=== PATIENT | female | born 1985 | race Caucasian/White ===

== ENCOUNTER 2021-05-19 14:44 | Inpatient (IN) | payer MEDICAID, SELFPAY ==
[2021-05-19] VITALS (96 sets, daily range): BP systolic 111–133; BP diastolic 80–106; PULSE 95–143; RESP 9–25; TEMP 36.6–36.7; O2SAT 95–100
[2021-05-19] MEDS: Ondansetron 4 MG/2 ML VIAL IVP (14:50)
--- NOTE | 2021-05-19 15:00 | RT.EKG_ITS ---
APPROVED REPORT Exam: Resting ECG Reason for Exam: tachycardia Patient Location: E HR:138 bpm ECG Measurements Heart Rate 138 AXIS ND 107 P 64 QRSd 81 QRS 28 QT 316 T 254 QTc 479 Conclusion Sinus tachycardia. Repol abnrm suggests ischemia, diffuse leads...ST-T neg, ant/lat/inf
--- NOTE | 2021-05-19 15:15 | DI.CT_ITS ---
Exam(s) CT THORAX ABD/PEL CTA EXAM: CT THORAX ABD/PEL CTA CLINICAL HISTORY: abdominal pain, back pain, can't walk. TECHNIQUE: Imaging Protocol: Axial computed tomography images with coronal and sagittal reformatted images were created and reviewed CONTRAST MATERIAL: Intravenous: Omnipaque 350 Contrast volume:100 in ml Oral: No COMPARISON: No exams were available for comparison FINDINGS: CHEST: Heart and great vessels: There is no evidence pulmonary emboli or aortic dissection. There are no pleural or pericardial effusions. Adenopathy: None. Lungs: No pulmonary nodules, mass or infiltrate. Bones: There is no evidence of spine or rib fracture. Mild scoliosis. ABDOMEN/PELVIS: Liver: Extreme fatty infiltration of the liver.. No measurable mass. Gallbladder: Cholelithiasis., no wall thickening, no abnormal distention.No pericholecystic fluid. Biliary tract: No radiodense calculus, no dilation. Pancreas: Normal density, no abnormal calcifications or inflammatory process. Spleen: Normal. Kidneys: Normal size, contour and axis. No radiodense stones. No hydronephrosis. No masses seen. No perinephric collection. Circumaortic left renal vein. Adrenal glands: No masses seen. Abdominal Aorta and branch vessels: Patent. Non-dilated. No atherosclerotic changes. No evidence of d issection. Bowel: No obstruction. Appendix normal. Mucosal enhancement ascending colon. Some fluid in ascending colon. Question ascending colitis. Remainder of the colon is unremarkable. Mild thickening of termina l ileum. Bladder: No gross wall thickening, focal mass or stones. Peritoneal cavity: Small amount of pelvic free fluid, presumed physiologic. No focal collection or m esenteric inflammatory response. No free air. Bones: No suspicious lesions or fractures. Mild scoliosis. Reproductive organs: Status post hysterectomy. Lymph nodes: No pathologically enlarged lymph nodes. Impression: No evidence of aortic dissection, pulmonary embolism or vascular occlusion. No significant abnormalit y in the chest. Severe fatty infiltration of the liver. Cholelithiasis without evidence of acute cholecystitis. Mild wall thickening and mucosal enhancement of the ascending colon and terminal ileum could indicate enterocolitis. RADIATION DOSE DELIVERED: Total DLP DATA REPOSITORY: All CT scans at this facility are submitted to the National Radiology Data Registry (NRDR) Dose Index Registry (DIR) with the [employer] (ACR). RADIATION OPTIMIZATION: All CT scans at this facility use at least one of these dose optimization te chniques: automated exposure control; mA and/or kV adjustment per patient size (includes targeted exa ms where dose is matched to clinical indication); or iterative reconstruction.
[2021-05-19 15:27] LABS: Abs Immature Grans 0.04 10^3/uL (0.0-0.06); Absolute Basophil Count 0.04 10^3/uL (0.0-0.2); Absolute Eosinophil Count 0.02 10^3/uL (0.0-0.7); Absolute Lymphocyte Count 1.57 10^3/uL (1.2-3.4); Absolute Monocyte Count 0.64 10^3/uL (0.1-0.8); Basophils % 0.5; Eosinophils % 0.2; HCT 39.5 % (36.0-46.0); HGB 13.6 g/dL (11.2-15.7); Immature Grans % 0.5; Lymphocytes % 18.4; MCH 32.9 pg (27.0-33.0); MCHC 34.4 % (32.0-36.0); MCV 95.6 fL (80-95); MPV 10.1 fL (8.0-11.0); Monocytes % 7.5; Neutrophils % 72.9; Nucleated RBC 0 %; Platelet Count 309 10^3/uL (130-400); RBC 4.13 10^6/uL (3.93-5.22); RDW 14.2 % (11.7-14.6); RDW-SD 49.9 fL; WBC 8.51 10^3/uL (4.4-10.8)
--- NOTE | 2021-05-19 15:29 | ED.GENADUL_ITS ---
Discharge Plan Disposition Patient Disposition: [facility] INPATIENT Condition: Stable Discharge Details Clinical Impression: Hypomagnesemia, Weakness, Diarrhea, Acute dehydration Admit Date/Time: 05/19/21 19:19 Admit Provider: Jorge Owens Attending Provider: Jorge Owens Primary Care Provider: Nicolas Hartmann ED Provider: Heaven Nielson Discharge Data Discharge Date/Time-TO BE ENTERED AT DEPARTURE: 05/19/21 19:57 Medical Decision Making <Mike Kahn NP - Last Filed: 05/24/21 16:51> Patient presenting to the emergency department with multiple complaints. She states this last week she had extremely low potassium and was sent home on oral potassium but has had chronic gallbladder issues which they have been unable to remove the gallbladder and today she is having worsening abdominal pain nausea v omiting. This is caused her not to be able to take her normal prescribed medications including one that keeps her heart rate down which is being happening for months. Patient also reports that she has had back pain for months which is worsening and since Thursday she has had significant numbness and tingling and loss of weightbearing activities to the lower extremities. Physical exam shows acutely ill patient with exquisite tenderness to right upper quadrant and epigastrium. Patient also is tachycardic in the 140s but states that she was not able to take her metoprolol this morning. Patient does have midline spinal tenderness. Plan to check labs, CTA of chest abdomen pelvis, and give metoprolol pending results. Pending results patient signed out to KATIE Collado for review of results including advanced imaging along with disposition. <KATIE Bradford - Last Filed: 05/19/21 21:20> Care was accepted from Alvarez Kahn, nurse practitioner pending diagnostic blood work, sodium was notably 130, gap of 13.9 consistent with likely dehydration, calcium adjusted with albumin 8.6 AST of 38, magnesium of 1.1 consistent with diarrhea and electrolyte depletion This may be contributing to patient's symptoms She has markedly weak on assessment She has diffuse paresthesias to bilateral lower extremities and upper extremities CT scan that was ordered prior to my assessment does not show evidence of significant acute abnormality, I did the results with the view to virtual radiology radiologist and he does notice an area of uptake in the cecum, he was questioning whether or not the patient may have area of hemorrhage in this area. As patient has a stable CBC and blood pressure, I suspect that this is not the case Patient denies any blood in stool Patient is alert, oriented, of decisional capacity, her reflexes to patella are difficult to elicit, she does have 1+ to her Achilles, her strength is 2 out of 5 bilaterally to her lower extremities and her upper extremities symmetrically She is unable to ambulate secondary to weakness She has challenges with digital rectal exam and no saddle anesthesia Acute Guillain-Jenkins?, however patient symptoms have been progressive over the past 5 months making this diagnosis very unlikely Aspect considered epidural abscess and cauda equina syndrome, however her exam findings are not consistent with these diagnoses Secondary to hypomagnesemia and dehydration, this may be exacerbating her persistent symptoms She is agreeable to admission at this time She would likely need further imaging of her brain and spine at the discretion of the admitting provider Her magnesium was repleted with 2 g She received IV fluid resuscitation She has remained alert, oriented, of decisional capacity throughout the entirety of this assessment Seizure precautions, telemetry monitoring, no QTC prolongation on EKG, sinus tachycardia, likely patient's baseline for which she takes metoprolol and has not been able to consume for the past [address] Owens is agreeable to admission Covid swab negative Medical Records Medical records reviewed: Yes I reviewed the patient's medical records. HPI <Mike Kahn NP - Last Filed: 05/24/21 16:51> General Mode of arrival: wheelchair . Date/Time Provider Initiated Documentation: 05/19/21 14:45 . Limitations to Documentation: no limitations . Information obtained by: patient . History of Present Illness 35 year old F presents to the emergency department with the chief complaint of abd pain, vomitting, back pain, inability to walk, described as moderate, with intensity rated at 8. Quality is described as sharp, and is localized to the back and abdomen. Patient started experiencing this month(s) and it has been constant. No relieving factors improve symptom(s), No exacerbating factors reported . Patient did receive the following treatments prior to arrival, none Related Data Home Medications Medication Instructions Recorded Confirmed albuterol sulfate [ProAir HFA] 2 puff INHALATION PRN PRN 05/19/21 05/19/21 metoprolol succinate 25 mg PO DAILY AM 05/19/21 05/19/21 omeprazole 40 mg PO DAILY AM 05/19/21 05/19/21 ondansetron 4 mg PO PRN PRN 05/19/21 05/19/21 potassium chloride 20 meq PO BID 05/19/21 05/19/21 prochlorperazine WI 05/19/21 05/19/21 Allergies Allergy/AdvReac Type Severity Reaction Status Date / Time erythromycin base Allergy Unknown Unverified 05/19/21 15:07 azithromycin AdvReac Intermediate dizziness, Unverified 05/19/21 15:07 vomiting citalopram AdvReac Intermediate extreme Unverified 05/19/21 15:07 drowsiness General Stated Complaint: Nk/Back Pain JAXSON: 2 <KATIE Bradford - Last Filed: 05/19/21 21:20> General Mode of arrival: wheelchair . Limitations to Documentation: no limitations . Information obtained by: patient . Review of Systems <Mike Kahn NP - Last Filed: 05/24/21 16:51> Constitutional Constitutional: Denies chills, Reports fatigue, Denies fever(s), Reports malaise and Reports weakness ENT Ears, Nose, Mouth, and Throat: Reports disequilibrium Cardiovascular Cardiovascular: Reports chest pain, Reports rapid heart rate and Denies dyspnea Respiratory Respiratory: Denies cough and Denies dyspnea Gastrointestinal Gastrointestinal: Reports abdominal pain, Reports nausea, Reports vomiting and Denies hematemesis Genitourinary Genitourinary: Denies dysuria Musculoskeletal Musculoskeletal: Reports abnormal gait, Reports back pain, Reports muscle weakn ess, Reports radiating pain into limb and Reports tingling Integumentary/Breasts Skin/Breast: Denies rash Neurologic Neurologic: Reports abnormal gait, Reports tingling, Reports paresthesias, Reports disequilibrium and Reports weakness Endocrine Endocrine: Reports fatigue PFSH <Mike Kahn NP - Last Filed: 05/24/21 16:51> All Active Problems (Updated 05/23/21 @ 16:45 by Lilian Pierre NP) Peripheral neuropathy (Acute) Enteritis (Acute) Hepatitis C test positive (Acute) Paresthesia (Acute) Discharge planning issues (Acute) DVT prophylaxis (Acute) Dental abscess (Acute) Facial swelling (Acute) Fibromyalgia (Acute) Back pain (Acute) Ambulatory dysfunction (Acute) Nausea & vomiting (Acute) Gallstones without obstruction of gallbladder (Acute) Hypomagnesemia (Acute) Weakness (Acute) Weakness (Acute) Social History (Updated 05/21/21 @ 16:41 by Myrna Pierre MD) Smoking/Tobacco Use Status: Current every day Tobacco Type: cigarettes Smoking risk assessment performed?: Yes Alcohol Intake: current Alcohol Intake frequency: 3 or more drinks per day Drug use: Current Sobriety Substance use type: former substance user Number of Children: 4 current occupation: Unemployed Do you feel safe at home: Yes Additional Social history: Kids age 12 and 10 live with her ex-. Has twins age 9. Was unable to care for them. Her aunt adopted them at . 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 Exam <Mike Kahn NP - Last Filed: 05/24/21 16:51> Const General: cooperative and ill appearing acutely Nutritional Appearance: thin Orientation: alert, awake and oriented x3 HENMT Mouth: oral mucosa abnormal (dry) erythematous and tongue abnormal (Dry and erythematous) other Resp Effort & Inspection: normal respiratory effort, able to speak in complete sentences and no respiratory distress Auscultation: clear to auscultation bilaterally Cardio Rate: tachycardic Rhythm: regular rhythm Heart Sounds: S1 normal and S2 normal GI Inspection: distended Palpation: guarding in the RUQ, not rigid and tender in the epigastrum and in the RUQ Auscultation: hypoactive bowel sounds Back/Spine/Pelvis Thoracic/Lumbar Spine: No paraspinal tenderness, No thoracic spinal tenderness and lumbar spinal tenderness Skin General skin exam: no rashes or lesions noted Neuro General: patient alert, patient awake, patient oriented x3 and moves all extremities Cognition: normal cognition Motor: strength abnormal (Diffuse nonfocal weakness) Sensory Exam: other (mild sensation perception diffusely throughout all) Course <Mike Kahn NP - Last Filed: 05/24/21 16:51> Vital Signs Vital signs: Vital Signs Temperature 36.7 C 05/19/21 15:01 Pulse 135 H 05/19/21 15:01 Respiratory Rate 12 05/19/21 15:01 Blood Pressure 125/99 H 05/19/21 15:01 Pulse Oximetry 99 05/19/21 15:01 Temperature 36.7 C 05/19/21 15:01 Temperature Source Temporal Artery Scan 05/19/21 15:01 Pulse 135 H 05/19/21 15:01 Respiratory Rate 12 05/19/21 15:01 Blood Pressure 125/99 H 05/19/21 15:01 Blood Pressure Position Supine 05/19/21 15:01 Pulse Oximetry 99 05/19/21 15:01 Oxygen Delivery Method Room Air 05/19/21 15:01 Oxygen Flow Rate 0 05/19/21 15:01 Lab/Test Results Lab/Test Results: Laboratory Tests Range/Units 05/19/21 15:24 WBC (4.4-10.8) 10^3/uL 8.51 RBC (3.93-5.22) 10^6/uL 4.13 Hgb (11.2-15.7) g/dL 13.6 Hct (36.0-46.0) % 39.5 MCV (80-95) fL 95.6 H MCH (27.0-33.0) pg 32.9 MCHC (32.0-36.0) % 34.4 RDW (11.7-14.6) % 14.2 Plt Count (130-400) 10^3/uL 309 MPV (8.0-11.0) fL 10.1 Immature Gran % 0.5 Neutrophils % 72.9 Lymphocytes % 18.4 Monocytes % 7.5 Eosinophils % 0.2 Basophils % 0.5 Nucleated RBC % % 0 Absolute Neutrophils (1.2-6.7) 10^3/uL 6.20 Absolute Lymphocytes (1.2-3.4) 10^3/uL 1.57 Absolute Monocytes (0.1-0.8) 10^3/uL 0.64 Absolute Eosinophils (0.0-0.7) 10^3/uL 0.02 Absolute Basophils (0.0-0.2) 10^3/uL 0.04 <KATIE Bradford - Last Filed: 05/19/21 21:20> Critical Care Time Critical Care Time: Yes Total Critical Care Time: 35 Attestation: IV magnesium, ED EKG, telemetry monitoring, admission Sign Out <Mike Kahn NP - Last Filed: 05/24/21 16:51> Sign Out Data: Sign Out Comment: Patient signed out to Heaven WILSON pending lab and CT imaging. Last updated by Mike Kahn NP at 05/19/21 16:21
[2021-05-19] MEDS: Metoprolol 5 MG/5 ML VIAL 2.5 MG IVP (15:35)
[2021-05-19] MEDS: Normal Saline 1,000 ML 1000 ML IV (15:35)
[2021-05-19] MEDS: HYDROmorphone 2 MG/ML VIAL 0.5 MG IVP (15:39)
[2021-05-19 15:54] LABS: ALT 38 U/L (14-59); AST 38 U/L (15-37); Albumin 2.9 g/dL (3.4-5.0); Alkaline Phosphatase 56 U/L (46-116); Anion Gap 13.9 mmol/L (3-11); BUN 7 mg/dL (7-18); Bilirubin, Total 0.8 mg/dL (0.2-1.0); CO2 23.1 mmol/L (21.0-32.0); CREATININE 0.5 mg/dL (0.55-1.02); Calcium 7.4 mg/dL (8.5-10.1); Chloride 93 mmol/L (98-107); Glucose 103 mg/dL (74-106); Lipase 85 U/L (73-393); Magnesium 1.1 mg/dL (1.8-2.4); Sodium 130 mmol/L (136-145); TSH (W/Ref FT4) 1.09 uIU/mL (0.36-3.74); Total Protein 6.3 g/dL (6.4-8.2); Troponin I < 50 ng/L (<or=60)
[2021-05-19 16:03] LABS: Source Nasal/Nares
--- NOTE | 2021-05-19 16:18 | DI.CT_ITS ---
Exam(s) CT THORACIC LUMBAR SPINE REC EXAM: CT THORACIC LUMBAR SPINE REC CLINICAL HISTORY: weakness and pain. TECHNIQUE: Imaging Protocol: Axial computed tomography images with coronal and sagittal reformatted images were created and reviewed. The images were reconstructed from the chest abdomen pelvic CT. CONTRAST MATERIAL: Intravenous: Omnipaque 350 Contrast volume:100 ml Contrast route:IV - Oral: yes / COMPARISON: CT CT THORAX ABD/PEL CTA from 05/19/2021 FINDINGS: Bones: No fractures or dislocations are seen. No lytic or blastic lesions. No degenerative changes. Mild thoracolumbar scoliosis. Soft tissues: Paraspinal soft tissues are unremarkable. No large disk herniations are identified. IMPRESSION: Mild scoliosis, otherwise negative. RADIATION DOSE DELIVERED: 709.92mGy.cm Total DLP 709.92mGy.cm Total DLP DATA REPOSITORY: All CT scans at this facility are submitted to the National Radiology Data Registry (NRDR) Dose Index Registry (DIR) with the [employer] (ACR). RADIATION OPTIMIZATION: All CT scans at this facility use at least one of these dose optimization te chniques: automated exposure control; mA and/or kV adjustment per patient size (includes targeted exa ms where dose is matched to clinical indication); or iterative reconstruction.
[2021-05-19 16:30] LABS: C-Reactive Protein 0.07 mg/dL (0.0-0.3)
[2021-05-19] MEDS: MAGNESIUM SULFATE 2 GM/50 ML BAG IVPB (16:30)
[2021-05-19] MEDS: Omnipaque 350 MG/ML 100 ML BTL IJ (16:32)
[2021-05-19] MEDS: Normal Saline Flush 10 ML SYR IVP ×2 (16:33→20:55)
[2021-05-19 16:40] LABS: PHOSPHORUS 3.4 mg/dL (2.6-4.7)
--- NOTE | 2021-05-19 17:23 | DI.VRAD_ITS ---
PROCEDURE INFORMATION: Exam: CTA Chest With Contrast Exam date and time: 05/19/2021 3:23 PM Age: 35 years old Clinical indication: Other: Abdominal pain, back pain, can't walk; Additional info: PT is currently on bedrest waiting to have gallbladder surgery. TECHNIQUE: Imaging protocol: Computed tomographic angiography of the chest with contrast. 3D rendering (Not supervised by radiologist): MIP and/or 3D reconstructed images were created by the technologist. Radiation optimization: All CT scans at this facility use at least one of these dose optimization techniques: automated exposure control; mA and/or kV adjustment per patient size (includes targeted exams where dose is matched to clinical indication); or iterative reconstruction. Contrast material: OMNIPAQUE 350; Contrast volume: 100 ml; Contrast route: INTRAVENOUS (IV); COMPARISON: No relevant prior studies available. FINDINGS: Pulmonary arteries: Normal. No pulmonary emboli. Aorta: There is no aortic aneurysm or dissection identified. Lungs: Unremarkable. No consolidation. No masses. Pleural spaces: There are no pleural effusions present. There is no evidence of pneumothorax. Heart: Unremarkable. No cardiomegaly. No pericardial effusion. Lymph nodes: There is no evidence of lymphadenopathy. Bones/joints: There is mild S-shaped thoracic scoliosis. No acute fractures are identified. Soft tissues: Unremarkable. IMPRESSION: 1. No aortic aneurysm or dissection identified. 2. No active cardiopulmonary disease identified. PROCEDURE INFORMATION: Exam: CTA Abdomen and Pelvis With Contrast Exam date and time: 05/19/2021 3:23 PM Age: 35 years old Clinical indication: Other: Abdominal pain, back pain, can't walk; Additional info: PT is currently on bedrest waiting to have gallbladder surgery. TECHNIQUE: Imaging protocol: Computed tomographic angiography of the abdomen and pelvis with contrast material. 3D rendering (Not supervised by radiologist): MIP and/or 3D reconstructed images were created by the technologist. Radiation optimization: All CT scans at this facility use at least one of these dose optimization techniques: automated exposure control; mA and/or kV adjustment per patient size (includes targeted exams where dose is matched to clinical indication); or iterative reconstruction. Contrast material: OMNIPAQUE 350; Contrast volume: 100 ml; Contrast route: INTRAVENOUS (IV); COMPARISON: No relevant prior studies available. FINDINGS: Aorta: No abdominal aortic aneurysm or dissection is identified. Celiac trunk and mesenteric arteries: No occlusion or significant stenosis. Renal arteries: No occlusion or significant stenosis. Right iliac arteries: No occlusion or significant stenosis. Left iliac arteries: No occlusion or significant stenosis. Liver: The liver parenchyma demonstrates diffusely decreased attenuation, suggesting fatty infiltration. Gallbladder and bile ducts: Findings suggest a few tiny layering gallstones measuring up to 2-3 mm. The gallbladder wall is not clearly thickened. There is no pericholecystic stranding. There is no biliary ductal dilatation.There has been a hysterectomy. Pancreas: Unremarkable. No mass. No ductal dilation. Spleen: Unremarkable. No splenomegaly. Adrenal glands: Unremarkable. No mass. Kidneys and ureters: Unremarkable. No solid mass. No hydronephrosis. Stomach and bowel: The distal ileum is collapsed and is not well evaluated, but findings suggest mild edematous wall thickening and mucosal hyperenhancement of multiple segments of distal ileum suggesting mild ileitis. There is also mild edematous wall thickening and mucosal hyperenhancement of the ascending colon and hepatic flexure of the colon, suggesting mild colitis in this region. There is mild air distension of the more distal colon from the transverse colon through the sigmoid colon with colon measuring up to 5.1 cm. There is a small amount dependent hyperdense material within the cecum and proximal ascending colon extending into the base of the appendix, which could represent ingested material, but intraluminal bleeding cannot be excluded on this exam. Appendix: No evidence for acute appendicitis. Intraperitoneal space: There is a small amount of ascites in the pelvis. Lymph nodes: Unremarkable. No enlarged lymph nodes. Urinary bladder: Unremarkable. No mass. Reproductive: Unremarkable as visualized. Bones/joints: There is mild S-shaped thoracolumbar scoliosis. No acute fractures are identified. There are no clear degenerative changes of the thoracic and lumbar spine. Soft tissues: Unremarkable. IMPRESSION: 1. No evidence for abdominal aortic dissection or aneurysm. 2. Findings of mild colitis involving the ascending colon as well as regions of mild distal enteritis. 3. There is dependent hyperdense material within the cecum and proximal ascending colon which could represent ingested material, but intraluminal bleeding cannot be excluded on this exam. Recommend clinical correlation. Follow-up exam could be obtained as clinically indicated. 4. Mild distention of the colon, suggesting ileus. No clear evidence for bowel obstruction. 5. Tiny gallstones. No CT evidence of acute cholecystitis. 6. Hepatic steatosis. Findings were discussed with KATIE Nielson at 05/19/2021 5:18 PM EST. Dictated and Authenticated by: Chilo Ruiz MD. Ordering:FIDENCIO Mckeon MD
[2021-05-19 18:04] LABS: COVID-19 PCR Negative (Negative)
[2021-05-19 18:17] LABS: Bilirubin Small (Negative); Blood Negative (Negative); Clarity Clear (Clear); Glucose Negative (Negative); Ketones >=160 mg/dL (Negative); Leukocyte Esterase Negative (Negative); Nitrite Negative (Negative); Specific Gravity 1.015 (1.005-1.025); Urobilinogen 0.2 EU/dL (Up TO 0.2); pH 6.5 (5-8)
--- NOTE | 2021-05-19 18:58 | W.PM.HP.N ---
Date of service: 05/19/21 Time of Service: 18:58 Assessment and Plan Assessment and plan (1) Weakness: Status: Acute Assessment and plan: Multifactorial. At this point I would describe the situation as an apparent chronic neuropathy with a acute subacute diarrheal illness. The theoretical intersection of sensory neuropathy with gastoenteropathy raises question of systemic illness, including inflammatory, metabolic or toxic entities, or possible nutritional deficiency. For now I would approach this case on separate tracks: 1. Acute weakness, dehydration and electrolyte disturbances: IVF, replensish electrolytes 2. gastroenteropthy: stools studies, will need upper and lower endoscopy, check Vitamin A, D and INR, and fecal calprotectin 3. Neuropathy: neuro consult 4. Sinus tachycardia: resume beta shy History of Present Illness History of Present Illness Chief Complaint: weakness Narrative: 35 female with h/o chronic unspecified neuropathy, cholelithiasis, unspecified tachycardia and recurrent diarrhea. usual care at [facility], says she is here because she hasn't gotten answers. Statesd she has had ascending snesory changes in stocking/glove fashion since last summer, has not seen neuro; states she has had intermittent bouts of abd pain, nausea and vomiting and diarrhea, and was told she should have her gall bladder removed (unclear why this has not happened) and comes in tonight reporting 2 weeks of unremitting watery diarrhea and progeressive weakness to the point where she was unable to ambulate. W/U in ER of note for white count 8.5; Na 130, K 4.0, Mg 1.1; BUN 7/Creat 0.5; Albumin 2.9, TSH 1.0; CT abdomen few tiny gall stones, no signs cholycystitis, mild ileitis and proximal colitis. Patient has received IVF, Zofran, Dilaudid and MgSO4. I was asked to evaluate for admission. Review of Systems All systems reviewed & are unremarkable except as noted in HPI and below PFSH All Active Problems (Updated 05/19/21 @ 19:12 by Jorge Owens MD) Weakness (Acute) Social History Smoking/Tobacco Use Status: Current every day Tobacco Type: cigarettes Smoking risk assessment performed?: Yes Alcohol Intake: current Alcohol Intake frequency: 3 or more drinks per day Drug use: Never Substance use type: former substance user Do you feel safe at home: Yes Meds Allergies and Home Medications Allergies Allergy/AdvReac Type Severity Reaction Status Date / Time erythromycin base Allergy Unknown Unverified 05/19/21 15:07 azithromycin AdvReac Intermediate dizziness, Unverified 05/19/21 15:07 vomiting citalopram AdvReac Intermediate extreme Unverified 05/19/21 15:07 drowsiness Home Medications Medication Instructions Recorded Confirmed Type albuterol sulfate [ProAir HFA] 2 puff INHALATION PRN PRN 05/19/21 05/19/21 History metoprolol succinate 25 mg PO DAILY AM 05/19/21 05/19/21 History omeprazole 40 mg PO DAILY AM 05/19/21 05/19/21 History ondansetron 4 mg PO PRN PRN 05/19/21 05/19/21 History potassium chloride 20 meq PO BID 05/19/21 05/19/21 History prochlorperazine [place] 05/19/21 05/19/21 History Exam Narrative Exam Narrative: 120/90. 113, 36.1, 17, 99% RA. HEENT atraumatic; neck supple; lungs clear; heart tachy/regular; abdomen hypoactive BS, soft, mild RUG tenderness w/o rebound; extremities w/o edema; neuro Ox3, CN intact, motor 5t/5 propx/distal; sensory decreased light touch reported throughout entire body; DTR trace to absent throughout Results Labs Result diagrams: 05/19/21 15:24 05/19/21 15:24 Labs: Laboratory Results - last 24 hr 05/19/21 05/19/21 05/19/21 15:24 15:24 15:24 WBC 8.51 RBC 4.13 Hgb 13.6 Hct 39.5 MCV 95.6 H MCH 32.9 MCHC 34.4 RDW 14.2 Plt Count 309 MPV 10.1 Immature Gran % 0.5 Neutrophils % 72.9 Lymphocytes % 18.4 Monocytes % 7.5 Eosinophils % 0.2 Basophils % 0.5 Nucleated RBC % 0 Absolute Neutrophils 6.20 Absolute Lymphocytes 1.57 Absolute Monocytes 0.64 Absolute Eosinophils 0.02 Absolute Basophils 0.04 Sodium 130 L Potassium 4.0 Chloride 93 L Carbon Dioxide 23.1 Anion Gap 13.9 H BUN 7 Creatinine 0.5 L Estimated GFR/1.73 m2 >= 60.00 Glucose 103 Calcium 7.4 L Phosphorus Magnesium 1.1 L Total Bilirubin 0.8 AST 38 H ALT 38 Alkaline Phosphatase 56 Troponin I < 50 C-Reactive Protein 0.07 Total Protein 6.3 L Albumin 2.9 L Lipase 85 TSH 1.09 Urine Color Urine Clarity Urine pH Ur Specific [place] Urine Protein Urine Ketones Urine Blood Urine Nitrite Urine Bilirubin Urine Urobilinogen Ur Leukocyte Esterase Urine Glucose COVID-19 Source SARS-CoV-2 (PCR) 05/19/21 05/19/21 05/19/21 15:24 15:55 18:00 WBC RBC Hgb Hct MCV MCH MCHC RDW Plt Count MPV Immature Gran % Neutrophils % Lymphocytes % Monocytes % Eosinophils % Basophils % Nucleated RBC % Absolute Neutrophils Absolute Lymphocytes Absolute Monocytes Absolute Eosinophils Absolute Basophils Sodium Potassium Chloride Carbon Dioxide Anion Gap BUN Creatinine Estimated GFR/1.73 m2 Glucose Calcium Phosphorus 3.4 Magnesium Total Bilirubin AST ALT Alkaline Phosphatase Troponin I C-Reactive Protein Total Protein Albumin Lipase TSH Urine Color Yellow Urine Clarity Clear Urine pH 6.5 Ur Specific [place] 1.015 Urine Protein Negative Urine Ketones >=160 H Urine Blood Negative Urine Nitrite Negative Urine Bilirubin Small H Urine Urobilinogen 0.2 Ur Leukocyte Esterase Negative Urine Glucose Negative COVID-19 Source Nasal/Nares SARS-CoV-2 (PCR) Negative Last Vital Signs Temp 36.7 C 05/19/21 15:01 Pulse 113 H 05/19/21 17:45 Resp 17 05/19/21 17:47 BP 120/90 05/19/21 17:45 Pulse Ox 99 05/19/21 17:47 PAWSS Have you Been Recently Intoxicated or Drunk Within the Last 30 days?: Yes Have you Ever Experienced Previous Episodes of Alcohol Withdrawal?: No Have you ever Experienced Withdrawal Seizures?: No Have you ever Experienced Delirium Tremens(DT)s?: No Have you ever undergone Alcohol Rehabilitation Treatment (i.e, inpt ot outpatient treatment programs)?: No Have you ever Experienced Blackouts?: No Have you ever Combined Alcohol with other Downers within the last 90 days?: No Have you ever Combined Alcohol with any other Substance of Abuse during the last 90 days?: No Positive Blood Alcohol level on Presentation? [PCS.BAL]: No Result: 1
[2021-05-19] MEDS: Lactated Ringers 1,000 ML 125 ML IV (20:54)
[2021-05-19] MEDS: ACETAMINOPHEN 1,000 MG/100 ML BTL 400 MG IVPB (21:08)
[2021-05-19] MEDS: Metoprolol 25 MG TAB PO (21:08)
[2021-05-20] VITALS (10 sets, daily range): BP systolic 113–130; BP diastolic 81–94; PULSE 70–109; RESP 17–18; TEMP 36.3–36.8; O2SAT 94–99
[2021-05-20] MEDS: Metoprolol CR 25 MG TABCR PO (05:36)
[2021-05-20] MEDS: ACETAMINOPHEN 1,000 MG/100 ML BTL 400 MG IVPB ×2 (05:56→12:13)
[2021-05-20] MEDS: Lactated Ringers 1,000 ML 125 ML IV ×2 (06:53→16:16)
[2021-05-20 07:27] LABS: INR 1.1 (0.9-1.1); Prothrombin Time 11.1 sec (9.3-11.0)
[2021-05-20] MEDS: Omeprazole 20 MG CAPCR 40 MG PO (07:44)
[2021-05-20 08:04] LABS: HCT 34.2 % (36.0-46.0); HGB 11.7 g/dL (11.2-15.7); MCH 33.1 pg (27.0-33.0); MCHC 34.2 % (32.0-36.0); MCV 96.9 fL (80-95); MPV 10.5 fL (8.0-11.0); Platelet Count 256 10^3/uL (130-400); RBC 3.53 10^6/uL (3.93-5.22); RDW 14.3 % (11.7-14.6); RDW-SD 50.9 fL; WBC 6.61 10^3/uL (4.4-10.8)
[2021-05-20 08:44] LABS: BUN 3 mg/dL (7-18); CREATININE 0.5 mg/dL (0.55-1.02); Calcium 6.8 mg/dL (8.5-10.1); Chloride 96 mmol/L (98-107); Glucose 81 mg/dL (74-106); Magnesium 1.9 mg/dL (1.8-2.4); Sodium 131 mmol/L (136-145); Vitamin B12 467 pg/mL (193-986)
[2021-05-20 08:46] LABS: Potassium 2.9 mmol/L (3.5-5.1)
--- NOTE | 2021-05-20 08:52 | W.SURGCON ---
Documented by User: Wilma Guan DO Ingr[place] 05/21/21 23:45 Date of service: 05/20/21 Time of Service: 08:52 Assessment and Plan Assessment and plan (1) Gallstones without obstruction of gallbladder: Status: Acute Assessment and plan: appear to be chroinic. No signs of acute infection or obstruction -once electrolytes resolved, can consider surgery. -could be done as outpt. -I did review the neurology consultation. -I did discuss the case with Dr. Rowe. Patient does not have any severe abdominal pain, nausea vomiting, or diarrhea at this time. Her other problems, specifically the weakness and the electrolyte abnormalities are not related to gallbladder disease. I will recommend she have her gallbladder out at a later time. She does not appear to require any endoscopy at this. She can follow-up with our clinic or with [facility] surgical group. (2) Weakness: Status: Acute (3) Diarrhea: Status: Acute (4) Acute dehydration: Status: Acute History of Present Illness Narrative: Pt presented to ED w/ weakness and abdominal pain. She is a pt from [facility] and we dont' have any prior information on her. CT: shows small stones and sludge. There are no signs of acute cholecystitis. She has significant electrolyte abnormalities PFSH All Active Problems (Updated 05/21/21 @ 16:55 by Vivi Guzmán NP) Enteritis (Acute) Hepatitis C test positive (Acute) Paresthesia (Acute) Discharge planning issues (Acute) DVT prophylaxis (Acute) Dental abscess (Acute) Facial swelling (Acute) Fibromyalgia (Acute) Back pain (Acute) Ambulatory dysfunction (Acute) Nausea & vomiting (Acute) Gallstones without obstruction of gallbladder (Acute) Hypomagnesemia (Acute) Weakness (Acute) Diarrhea (Acute) Acute dehydration (Acute) Weakness (Acute) Social History (Updated 05/21/21 @ 16:41 by Myrna Pierre MD) Smoking/Tobacco Use Status: Current every day Tobacco Type: cigarettes Smoking risk assessment performed?: Yes Alcohol Intake: current Alcohol Intake frequency: 3 or more drinks per day Drug use: Current Sobriety Substance use type: former substance user Number of Children: 4 current occupation: Unemployed Do you feel safe at home: Yes Additional Social history: Kids age 12 and 10 live with her ex-. Has twins age 9. Was unable to care for them. Her aunt adopted them at . 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 Exam Resp Effort & Inspection: normal respiratory effort and able to speak in complete sentences Auscultation: clear to auscultation bilaterally Cardio Rate: regular rate Rhythm: regular rhythm GI Palpation: soft Auscultation: normal bowel sounds Other: mild RUQ pain Results Last Vital Signs Temp 36.3 C L 05/20/21 07:23 Pulse 91 H 05/20/21 07:23 Resp 17 05/20/21 07:23 BP 125/90 05/20/21 07:23 Pulse Ox 99 05/20/21 07:23 Labs Result diagrams: 05/21/21 06:45 05/21/21 17:00 Labs: Laboratory Results - last 24 hr 05/19/21 05/19/21 05/19/21 15:24 15:24 15:24 WBC 8.51 RBC 4.13 Hgb 13.6 Hct 39.5 MCV 95.6 H MCH 32.9 MCHC 34.4 RDW 14.2 Plt Count 309 MPV 10.1 Immature Gran % 0.5 Neutrophils % 72.9 Lymphocytes % 18.4 Monocytes % 7.5 Eosinophils % 0.2 Basophils % 0.5 Nucleated RBC % 0 Absolute Neutrophils 6.20 Absolute Lymphocytes 1.57 Absolute Monocytes 0.64 Absolute Eosinophils 0.02 Absolute Basophils 0.04 PT INR Sodium 130 L Potassium 4.0 Chloride 93 L Carbon Dioxide 23.1 Anion Gap 13.9 H BUN 7 Creatinine 0.5 L Estimated GFR/1.73 m2 >= 60.00 Glucose 103 Calcium 7.4 L Phosphorus Magnesium 1.1 L Total Bilirubin 0.8 AST 38 H ALT 38 Alkaline Phosphatase 56 Troponin I < 50 C-Reactive Protein 0.07 Total Protein 6.3 L Albumin 2.9 L Lipase 85 Vitamin B12 TSH 1.09 Urine Color Urine Clarity Urine pH Ur Specific [place] Urine Protein Urine Ketones Urine Blood Urine Nitrite Urine Bilirubin Urine Urobilinogen Ur Leukocyte Esterase Urine Glucose COVID-19 Source SARS-CoV-2 (PCR) 05/19/21 05/19/21 05/19/21 15:24 15:55 18:00 WBC RBC Hgb Hct MCV MCH MCHC RDW Plt Count MPV Immature Gran % Neutrophils % Lymphocytes % Monocytes % Eosinophils % Basophils % Nucleated RBC % Absolute Neutrophils Absolute Lymphocytes Absolute Monocytes Absolute Eosinophils Absolute Basophils PT INR Sodium Potassium Chloride Carbon Dioxide Anion Gap BUN Creatinine Estimated GFR/1.73 m2 Glucose Calcium Phosphorus 3.4 Magnesium Total Bilirubin AST ALT Alkaline Phosphatase Troponin I C-Reactive Protein Total Protein Albumin Lipase Vitamin B12 TSH Urine Color Yellow Urine Clarity Clear Urine pH 6.5 Ur Specific [place] 1.015 Urine Protein Negative Urine Ketones >=160 H Urine Blood Negative Urine Nitrite Negative Urine Bilirubin Small H Urine Urobilinogen 0.2 Ur Leukocyte Esterase Negative Urine Glucose Negative COVID-19 Source Nasal/Nares SARS-CoV-2 (PCR) Negative 05/20/21 05/20/21 05/20/21 06:30 06:30 06:30 WBC RBC Hgb Hct MCV MCH MCHC RDW Plt Count MPV Immature Gran % Neutrophils % Lymphocytes % Monocytes % Eosinophils % Basophils % Nucleated RBC % Absolute Neutrophils Absolute Lymphocytes Absolute Monocytes Absolute Eosinophils Absolute Basophils PT 11.1 H INR 1.1 Sodium 131 L Potassium 2.9 L D Chloride 96 L Carbon Dioxide 21.0 Anion Gap 14.0 H BUN 3 L Creatinine 0.5 L Estimated GFR/1.73 m2 >= 60.00 Glucose 81 Calcium 6.8 L Phosphorus Magnesium 1.9 Total Bilirubin AST ALT Alkaline Phosphatase Troponin I C-Reactive Protein Total Protein Albumin Lipase Vitamin B12 Cancelled 467 TSH Urine Color Urine Clarity Urine pH Ur Specific [place] Urine Protein Urine Ketones Urine Blood Urine Nitrite Urine Bilirubin Urine Urobilinogen Ur Leukocyte Esterase Urine Glucose COVID-19 Source SARS-CoV-2 (PCR) 05/20/21 06:30 WBC 6.61 RBC 3.53 L Hgb 11.7 Hct 34.2 L MCV 96.9 H MCH 33.1 H MCHC 34.2 RDW 14.3 Plt Count 256 MPV 10.5 Immature Gran % Neutrophils % Lymphocytes % Monocytes % Eosinophils % Basophils % Nucleated RBC % Absolute Neutrophils Absolute Lymphocytes Absolute Monocytes Absolute Eosinophils Absolute Basophils PT INR Sodium Potassium Chloride Carbon Dioxide Anion Gap BUN Creatinine Estimated GFR/1.73 m2 Glucose Calcium Phosphorus Magnesium Total Bilirubin AST ALT Alkaline Phosphatase Troponin I C-Reactive Protein Total Protein Albumin Lipase Vitamin B12 TSH Urine Color Urine Clarity Urine pH Ur Specific [place] Urine Protein Urine Ketones Urine Blood Urine Nitrite Urine Bilirubin Urine Urobilinogen Ur Leukocyte Esterase Urine Glucose COVID-19 Source SARS-CoV-2 (PCR) Documented by User: KATIE Pablo 05/20/21 13:17 History of Present Illness History of Present Illness Chief Complaint: Weakness, Diarrhea Narrative: Patient reports that she previously had a Colonoscopy 3-4 years ago at [facility], for GI issues, which she described was mostly constipation. She states that these symptoms improved after she started taking Miralax to help with constipation. However over the past 2 weeks she has been experiencing copious amounts of watery diarrhea. She states she has not been able to eat any solid food, only sips of gatorade. She states the diarrhea has subsided since her admission into the hospital and being NPO. Denies any bloody stools or black tarry stools. Denies any fevers, chills or night sweats. Also of note patient describes progressively worsening numbness, pins and needles and tingling in Nick. LE's and UE's. She states that currently it feels very difficult to move her legs. She denies any incontinence of urine or stool. She states that she has been Sober for 8 years. She smokes 1 pack of cigarettes/day. Denies use of marijuana. She reports occasional ETOH use a few times per week. She states a month or so ago, she was heavily drinking 4-5 Hard [place] cans following a personal relationship break up. [facility] All Active Problems (Updated 05/21/21 @ 16:55 by Vivi Guzmán NP) Enteritis (Acute) Hepatitis C test positive (Acute) Paresthesia (Acute) Discharge planning issues (Acute) DVT prophylaxis (Acute) Dental abscess (Acute) Facial swelling (Acute) Fibromyalgia (Acute) Back pain (Acute) Ambulatory dysfunction (Acute) Nausea & vomiting (Acute) Gallstones without obstruction of gallbladder (Acute) Hypomagnesemia (Acute) Weakness (Acute) Diarrhea (Acute) Acute dehydration (Acute) Weakness (Acute) Social History (Updated 05/21/21 @ 16:41 by Myrna Pierre MD) Smoking/Tobacco Use Status: Current every day Tobacco Type: cigarettes Smoking risk assessment performed?: Yes Alcohol Intake: current Alcohol Intake frequency: 3 or more drinks per day Drug use: Current Sobriety Substance use type: former substance user Number of Children: 4 current occupation: Unemployed Do you feel safe at home: Yes Additional Social history: Kids age 12 and 10 live with her ex-. Has twins age 9. Was unable to care for them. Her aunt adopted them at . 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 Results Labs Result diagrams: 05/21/21 06:45 05/21/21 17:00
[2021-05-20] MEDS: POTASSIUM CHLORIDE 10 MEQ/100 ML BAG 100 MEQ IVPB (11:00)
[2021-05-20] MEDS: Potassium Chloride 20 MEQ TABCR 40 MEQ PO (11:13)
[2021-05-20] MEDS: POTASSIUM CHLORIDE 10 MEQ/100 ML BAG 75 MEQ IVPB (13:03)
[2021-05-20] MEDS: Potassium Chloride 20 MEQ TABCR PO ×2 (13:31→20:26)
[2021-05-20] MEDS: Clindamycin 150 MG CAP 450 MG PO ×2 (13:31→20:26)
[2021-05-20] MEDS: Pregabalin 25 MG CAP PO ×2 (13:31→20:26)
--- NOTE | 2021-05-20 14:00 | INITIAL_ITS ---
- If Service Date Differs Date of service: 05/20/21 Time of Service: 14:00 Care Management Initial Assess REASON FOR HOSPITALIZATION:: Weakness, abdominal pain, dehydration, diarrhea PAST MEDICAL HISTORY/PAST SURGICAL HISTORY:: Past medical and surgical HX o btained from patient: HX fibromylagia, Cholecystitis, IBS, Tachycardia. S/P Hysterectomy 2016. S/P 2011. S/P colonoscopy with polyp removal PREVIOUS FUNCTIONAL STATUS/SOCIAL/FAMILY SUPPORTS:: Brenda lives alone in a condo in [place] with her dog. She is seperated from her Rehana. She has two children that live in [place]. Brenda does not work or drive. Her brother Nando has been staying with her for the last few weeks, to help her with ambulation. She uses a cane at baseline. Her neighbor Moises is supportive. She does not have any concerns with food or housing at this time. She is hoping to get on disability due to her ongoing health issues. CURRENT FUNCTIONAL STATUS:: Brenda was lying in bed when met with her. She wa s pleasant and easily engaged in conversation. She shares that it feels like she is going paralyzed and reports numbness from her head to her toes. Her sx have been ongoing since November, but worse since she fell down the stairs about a month ago. She did not seek medical attention after her fall. In addition, Brenda reported to that she had a significant lumbar spine injury in 2013 and reportedly dislocated her lower lumbar spine and twisted her pelvis. Following that injury she was in a hip brace and used a cane for three years. She does not associate her current sx to these old injuries. ADVANCE DIRECTIVES:: None on file, she would like her brother Nando to be her HCA. CM provided her with the paperwork. Has patient been provided with info about the portal/API?: Yes Did the patient sign up for the portal?: No CODE STATUS:: Full Code INSURANCE COVERAGE / FINANCIAL ISSUES:: Medicaid CURRENT HOME/COMMUNITY SERVICES/EQUIPMENT:: [place] PRIMARY CARE PHYSICIAN:: Nicolas Hartmann POTENTIAL DISCHARGE NEEDS:: Follow up appointments with community providers: PCP, surgeon and neurology. SNF for short term rehab vs. home with [facility] services PATIENT/FAMILY EDUCATION NEEDS:: Review discharge instructions, medications and plan to follow up with community providers. ask me three. TRANSPORTATION:: via private vehicle with [employer]. PLAN:: Anticipate Brenda will be discharged home with [facility] RN/PT when medically cleared by surgery. PT consult will be needed prior to discharge to determine need for SNF for continued rehab. Transportation dependent on disposition. Follow up with community providers and discharge plan of care as prescribed.
--- NOTE | 2021-05-20 14:13 | PGE_ITS ---
Date of Service Date of service: 05/20/21 Time of Service: 14:13 Assessment and Plan Assessment and plan (1) Hypokalemia: Status: Acute (2) Weakness: Start date: 05/20/21 Start time: 14:26 Status: Acute Assessment and plan: Unsure source. Neurology consulted Weakness throughout, Decreased sensation (see note) Decreased DTR to Will await neurology recommendations Labs so far K and Sodium , BUN and creatinine low otherwise normal Will check ESR Calcium also low will give calcium QID Believe there is also a component of depression as patient states that recently her left her and took her kids and moved back to [place] leaving her here by herself. Start on low dose antidepressant, will trial cymbalta as this also helps with pain (3) Acute dehydration: Start date: 05/20/21 Start time: 14:29 Status: Acute Assessment and plan: Continue IV hydration, appears to more hydrated today Will give clear diet advance as tolerated (4) Gallstones without obstruction of gallbladder: Start date: 05/20/21 Start time: 14:31 Status: Acute Assessment and plan: Surgery consulted, this can be done as outpatient, not emergent. (5) Nausea & vomiting: Start date: 05/20/21 Start time: 14:31 Status: Acute Assessment and plan: States for the last couple of days, she last vomited yesterday morning, wanted to try eating today, will start with clears. (6) Ambulatory dysfunction: Start date: 05/20/21 Start time: 14:32 Status: Acute Assessment and plan: She states progressive weakness causing her to be uable to walk since Thursday however she does have sensatiion in her feet. Not ascending weakness. PT consulted (7) Back pain: Start date: 05/20/21 Start time: 14:33 Status: Acute Assessment and plan: C/o severe back pain to spine especially with palpation (8) Fibromyalgia: Start date: 05/20/21 Start time: 14:38 Status: Acute Assessment and plan: She states diagnosis of this in the past, was on lyrica before. Will restart as she states pain to back and other areas. Also pilar gates (9) Facial swelling: Start date: 05/20/21 Start time: 14:44 Status: Acute Assessment and plan: D/t dental abscess treat with clinda oral (10) Dental abscess: Start date: 05/20/21 Start time: 14:44 Status: Acute Assessment and plan: as above (11) Discharge planning issues: Start date: 05/20/21 Start time: 14:45 Status: Acute Assessment and plan: She wants to go to rehab will have PT evaluate. discussed with Dr Rowe. Subjective Subjective Patient reports: other Interval history since last seen: Patient lying in bed. States being weak since Thursday. Worsening sx, with numbness, tingling, not being able to ambulate. She also endorses vomiting yesterday. She does have gallstones, but surgery can be done as an outpatient. She is being hydrated. Will give clear liquids and advance as tolerated. Also her right side of her face is swollen from dental abscess. Start oral clinda. She has no sensation from ankle to hip, pain with sensation from hip to neck and abd to neck. Some sensation on arms, light sensation to hands no sensation to face. Neurology consulted. She use to take lyrica for fibromyalgia, but she states her stopped d/t drug interaction, will restart Exam Narrative Exam Narrative: RA HEENT atraumatic; neck supple; lungs clear; heart tachy/regular; abdomen hypoactive BS, soft, mild RUG tenderness w/o rebound; extremities w/o edema; neuro Ox3, CN intact, motor 5t/5 propx/distal; sensory decreased light touch reported throughout entire body; DTR trace to absent thro ughout Objective Last Vital Signs Temp 36.3 C L 05/20/21 07:23 Pulse 91 H 05/20/21 07:23 Resp 17 05/20/21 07:23 BP 125/90 05/20/21 07:23 Pulse Ox 99 05/20/21 07:23 Laboratory Results - last 24 hr 05/19/21 05/19/21 05/19/21 15:24 15:24 15:24 WBC 8.51 RBC 4.13 Hgb 13.6 Hct 39.5 MCV 95.6 H MCH 32.9 MCHC 34.4 RDW 14.2 Plt Count 309 MPV 10.1 Immature Gran % 0.5 Neutrophils % 72.9 Lymphocytes % 18.4 Monocytes % 7.5 Eosinophils % 0.2 Basophils % 0.5 Nucleated RBC % 0 Absolute Neutrophils 6.20 Absolute Lymphocytes 1.57 Absolute Monocytes 0.64 Absolute Eosinophils 0.02 Absolute Basophils 0.04 PT INR Sodium 130 L Potassium 4.0 Chloride 93 L Carbon Dioxide 23.1 Anion Gap 13.9 H BUN 7 Creatinine 0.5 L Estimated GFR/1.73 m2 >= 60.00 Glucose 103 Calcium 7.4 L Phosphorus Magnesium 1.1 L Total Bilirubin 0.8 AST 38 H ALT 38 Alkaline Phosphatase 56 Troponin I < 50 C-Reactive Protein 0.07 Total Protein 6.3 L Albumin 2.9 L Lipase 85 Vitamin B12 TSH 1.09 Urine Color Urine Clarity Urine pH Ur Specific [place] Urine Protein Urine Ketones Urine Blood Urine Nitrite Urine Bilirubin Urine Urobilinogen Ur Leukocyte Esterase Urine Glucose COVID-19 Source SARS-CoV-2 (PCR) 05/19/21 05/19/21 05/19/21 15:24 15:55 18:00 WBC RBC Hgb Hct MCV MCH MCHC RDW Plt Count MPV Immature Gran % Neutrophils % Lymphocytes % Monocytes % Eosinophils % Basophils % Nucleated RBC % Absolute Neutrophils Absolute Lymphocytes Absolute Monocytes Absolute Eosinophils Absolute Basophils PT INR Sodium Potassium Chloride Carbon Dioxide Anion Gap BUN Creatinine Estimated GFR/1.73 m2 Glucose Calcium Phosphorus 3.4 Magnesium Total Bilirubin AST ALT Alkaline Phosphatase Troponin I C-Reactive Protein Total Protein Albumin Lipase Vitamin B12 TSH Urine Color Yellow Urine Clarity Clear Urine pH 6.5 Ur Specific [place] 1.015 Urine Protein Negative Urine Ketones >=160 H Urine Blood Negative Urine Nitrite Negative Urine Bilirubin Small H Urine Urobilinogen 0.2 Ur Leukocyte Esterase Negative Urine Glucose Negative COVID-19 Source Nasal/Nares SARS-CoV-2 (PCR) Negative 05/20/21 05/20/21 05/20/21 06:30 06:30 06:30 WBC RBC Hgb Hct MCV MCH MCHC RDW Plt Count MPV Immature Gran % Neutrophils % Lymphocytes % Monocytes % Eosinophils % Basophils % Nucleated RBC % Absolute Neutrophils Absolute Lymphocytes Absolute Monocytes Absolute Eosinophils Absolute Basophils PT 11.1 H INR 1.1 Sodium 131 L Potassium 2.9 L D Chloride 96 L Carbon Dioxide 21.0 Anion Gap 14.0 H BUN 3 L Creatinine 0.5 L Estimated GFR/1.73 m2 >= 60.00 Glucose 81 Calcium 6.8 L Phosphorus Magnesium 1.9 Total Bilirubin AST ALT Alkaline Phosphatase Troponin I C-Reactive Protein Total Protein Albumin Lipase Vitamin B12 Cancelled 467 TSH Urine Color Urine Clarity Urine pH Ur Specific [place] Urine Protein Urine Ketones Urine Blood Urine Nitrite Urine Bilirubin Urine Urobilinogen Ur Leukocyte Esterase Urine Glucose COVID-19 Source SARS-CoV-2 (PCR) 05/20/21 06:30 WBC 6.61 RBC 3.53 L Hgb 11.7 Hct 34.2 L MCV 96.9 H MCH 33.1 H MCHC 34.2 RDW 14.3 Plt Count 256 MPV 10.5 Immature Gran % Neutrophils % Lymphocytes % Monocytes % Eosinophils % Basophils % Nucleated RBC % Absolute Neutrophils Absolute Lymphocytes Absolute Monocytes Absolute Eosinophils Absolute Basophils PT INR Sodium Potassium Chloride Carbon Dioxide Anion Gap BUN Creatinine Estimated GFR/1.73 m2 Glucose Calcium Phosphorus Magnesium Total Bilirubin AST ALT Alkaline Phosphatase Troponin I C-Reactive Protein Total Protein Albumin Lipase Vitamin B12 TSH Urine Color Urine Clarity Urine pH Ur Specific [place] Urine Protein Urine Ketones Urine Blood Urine Nitrite Urine Bilirubin Urine Urobilinogen Ur Leukocyte Esterase Urine Glucose COVID-19 Source SARS-CoV-2 (PCR) PAWSS Have you Been Recently Intoxicated or Drunk Within the Last 30 days?: Yes Have you Ever Experienced Previous Episodes of Alcohol Withdrawal?: No Have you ever Experienced Withdrawal Seizures?: No Have you ever Experienced Delirium Tremens(DT)s?: No Have you ever undergone Alcohol Rehabilitation Treatment (i.e, inpt ot outpatient treatment programs)?: No Have you ever Experienced Blackouts?: No Have you ever Combined Alcohol with other Downers within the last 90 days?: No Have you ever Combined Alcohol with any other Substance of Abuse during the last 90 days?: No Positive Blood Alcohol level on Presentation? [PCS.BAL]: No Result: 1
[2021-05-20] MEDS: DULoxetine 20 MG CAP PO (14:54)
[2021-05-20 15:31] LABS: Potassium 3.9 mmol/L (3.5-5.1)
[2021-05-20 16:29] LABS: Ionized Calcium 0.94 mmol/L (1.12-1.32)
[2021-05-20] MEDS: Calcium Carbonate *TUMS* 500 MG CHEW 1000 MG PO (16:33)
--- NOTE | 2021-05-20 16:49 | NCONE_ITS ---
Date of service: 05/20/21 Time of Service: 16:49 Assessment and Plan Assessment and plan (1) Weakness: Status: Acute (2) Ambulatory dysfunction: Status: Acute (3) Paresthesia: Status: Acute Assessment and plan: Ms. Voss is a 35 year-old, right-handed woman who presents with chronic progressive paraesthesias and now weakness, with inability to ambulate. Her neurological exam was notable for functional overlay and complicated by giveway weakness. She is grossly hypo/areflexic. Broad differential at this time including both [employer] (MS, acute spinal cord, functional) and PNS (atypical non-length dependent neuropathy - complicated by known hepatitis C/ETOH abuse but +/- ?autoimmune/inflammatory) processes. I agree with aggressive PT. We will start with MRI brain, c-spine as well as L- spine. Please check ESR and SPEP as further work-up. She will also need NCS/EMG studies which we will arrange to have done as an outpatient (unable to do this inpatient). Given unclear diagnosis, no clear treatment plan at this time. Though if cleared from GI stand point, could consider short course of high-dose steroids for possible inflammatory component. Consider ST evaluation given swallowing issues noted. History of Present Illness History of Present Illness Chief Complaint: weakness Narrative: Handedness: right. HPI: Ms. Voss is a 35 year-old woman with mood disorder, fibromyalgia, hepatitis C, ETOH abuse, irritable bowel syndrome, GERD, and tachycardia/p alpitations. Ms. Voss was admitted 05/19/2021 with abdominal pain, nausea, vomiting, and diarrhea which she attributes to needing her gallbladder taken out. She also presented with acute on chronic paresthesias with a more acute inability to walk. She notes that in summer 2020, she developed [id number] in her feet. This proceeded to expand upper legs into her calves in November and up to her thighs in February. Since then her paresthesias have extended into her fingers and hands, arms, belly, and even in her face and lips. She notes that numbness of her entire body has been persistent for the last 5 days. She notes that even her tongue is numb. She is choking on her saliva but is not having any difficulty with liquids, solids, or medications. She describes feeling like she is swallowing a golf ball. At the same time that she developed these paresthesias, she has also developed weakness and gait imbalance. She started using a cane in February. For the last 1 week, she has been unable to ambulate without assistance. She feels like she may have some mild weakness in her arms specifically noting that she tried to hold onto a pencil, it felt weird. She notes that her family history is largely unknown as she was adopted. Her children are healthy. She notes that her biological brother is having numbness in his hands. She also believes that her brother talked to their biological mother recently and apparently her maternal grandmother, age unknown, is having similar problems to her including weakness, numbness, and balance problems. She was referred to [facility] neurology for her symptoms by her PCP Dr. Oquendo in December 2020. She had an appointment on 05/06/2021 at [facility] but apparently did not show up to it. She is under the impression that her appointment is several months out. However, she notes that she will be moving back to [place], [place] on 06/14/2021 which is where she originally is from. She notes ongoing stressors in the last 1 year including separation with her who has custody of their children. She is currently unemployed. Has not worked since 2016 due to mental health and physical health issues (she was not specific). She is not on disability. 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 Work-up/testing: -Labs (05/19/21 at [facility]):W 8.5, Na 130, K 4.0, Mag 1.1, BUN 7, Cr 0.5, TSH 1.09, AST 38, CRP 0.07, lipase 85 -CT/CTA A/P (05/19/21 at [facility]): Severe fatty infiltration of the liver. Cholelithiasis without evidence of acute cholecystitis. Mild wall thickening and mucosal enhancement of the ascending colon and terminal ileum could indicate enterocolitis. -CT Thoracic/lumbar spine (05/19/21 at [facility]): mild scoliosis. -Labs (05/13/21 at [facility]): W 6.6, K 1.9 -> 2.6, Na 130, BUN 6, Cr 0.5, AST 58, lipase 66 -CT A/P (05/13/21 at [facility]): hepatic steatosis and hepatomegaly. -Labs (01/11/21 at [facility]): [id number] Consults Requesting physician: Jorge Owens Review of Systems All systems reviewed & are unremarkable except as noted in HPI and below PFSH All Active Problems Paresthesia (Acute) Hypokalemia (Acute) Discharge planning issues (Acute) DVT prophylaxis (Acute) Dental abscess (Acute) Facial swelling (Acute) Fibromyalgia (Acute) Back pain (Acute) Ambulatory dysfunction (Acute) Nausea & vomiting (Acute) Gallstones without obstruction of gallbladder (Acute) Hypomagnesemia (Acute) Weakness (Acute) Diarrhea (Acute) Acute dehydration (Acute) Weakness (Acute) Social History Smoking/Tobacco Use Status: Current every day Tobacco Type: cigarettes Smoking risk assessment performed?: Yes Alcohol Intake: current Alcohol Intake frequency: 3 or more drinks per day Drug use: Never Substance use type: former substance user Do you feel safe at home: Yes Visit Medication and Allergies Active Medications Generic Name Dose Route Start Last Admin Trade Name Freq PRN Reason Stop Dose Admin Calcium Carbonate 1,000 mg 05/20/21 16:00 05/20/21 16:33 Calcium Carbonate *Tums* 500 Mg Chew PO 1,000 mg QID MORELIA Administration Clindamycin HCl 450 mg 05/20/21 14:00 05/20/21 13:31 Clindamycin 150 Mg Cap PO 450 mg Q6H MORELIA Administration Dimethicone/Zinc Oxide 0 gm 05/19/21 19:19 Maggie Protect Cream 142 Gm Tube TP PRN PRN Duloxetine HCl 20 mg 05/20/21 14:45 05/20/21 14:54 Duloxetine 20 Mg Cap PO 20 mg DAILY MORELIA Administration Ringer's Solution 1,000 mls @ 125 mls/hr 05/19/21 19:30 05/20/21 16:16 IV 125 mls/hr INFUSION MORELIA Administration Acetaminophen 1,000 mg in 100 mls @ 400 mls/hr 05/19/21 19:25 05/20/21 12:13 Ofirmev IVPB 400 mls/hr Q6H PRN PRN Administration IV Miscellaneous Supplies 1 each 05/19/21 15:30 Iv Access IV DIRECTED MORELIA Iohexol 100 ml 05/19/21 16:45 05/19/21 16:32 Omnipaque 350 Mg/Ml 100 Ml Btl IJ 06/18/21 23:59 100 ml DIRECTED MORELIA Administration Metoprolol Succinate 25 mg 05/20/21 06:00 05/20/21 05:36 Metoprolol Cr 25 Mg Tabcr PO 25 mg 0600 MORELIA Administration Nicotine 0 cartridge 05/20/21 07:29 05/20/21 16:37 Nicotine 10 Mg/Cartridge 30 Cart/Pkg IH 4 mg Q2H PRN PRN Administration Omeprazole 40 mg 05/20/21 07:30 05/20/21 07:44 Omeprazole 20 Mg Capcr PO 40 mg DAILY@0730 MORELIA Administration Potassium Chloride 20 meq 05/20/21 14:00 05/20/21 13:31 Potassium Chloride 20 Meq Tabcr PO 20 meq TID MORELIA Administration Pregabalin 25 mg 05/20/21 12:50 05/20/21 13:38 Pregabalin 25 Mg Cap PO Not Given TID MORELIA Sodium Chloride 0 ml 05/19/21 15:18 05/19/21 20:55 Normal Saline Flush 10 Ml Syr IVP 10 ml PRN PRN Administration Sodium Chloride 50 ml 05/19/21 16:45 05/19/21 16:33 Normal Saline 50 Ml Bag IJ 50 ml DIRECTED MORELIA Administration Zolpidem Tartrate 5 mg 05/19/21 19:25 Zolpidem 5 Mg Tab PO HS PRN MAY REPEAT X1 PRN Allergies erythromycin base Allergy (Unknown, Unverified 05/19/21 15:07) azithromycin Adverse Reaction (Intermediate, Unverified 05/19/21 15:07) dizziness, vomiting citalopram Adverse Reaction (Intermediate, Unverified 05/19/21 15:07) extreme drowsiness Exam Narrative Exam Narrative: Physical Exam: Gen: Patient of apparent stated age, NAD, feet/hands dirty Head and face: no facial or cranial abnormalities Neck: Supple, no meningismus, no occipital tenderness CV: + S1, S2, RRR, no murmur Resp: CTA B/L Abd: soft, nontender, nondistended Ext: No edema. No clubbing or cyanosis. No bony deformity. Neuro Exam: Language: fluency, naming, repetition, and comprehension intact; Mental Status: AAOx3, current events intact, fund of knowledge intact; Speech: no dysarthria Cranial nerves: Funduscopy: not performed CN II: visual hill intact CN III, IV, : extraocular movements intact, no nystagmus, pupils symmetric and reactive to light CN V: face sensation intact to LT and PP; reduced vibration in L V1 CN VII: no facial asymmetry noted CN VIII: hearing intact bilaterally CN IX, X: palate rises symmetrically CN XI: trapezius/SCM 5/5 bilaterally CN XII: protrudes tongue symmetrically Sensory: intact to joint position in all extremities; absent LT, vibration, and PP below the belly button, however withdrew/localized to noxious stimuli in both LE; Motor: bulk and tone intact. Fine motor movements intact bilaterally. No pronator drift. Strength 5/5 throughout the bilateral UE. Give way weakness in bilateral hip flexors even with just barely touching. Strength 5/5 distally - ankle dorsiflexion/plantarflexion. Reflexes: hyporeflexic throughout; toes down going bilaterally; Coordination: FTN and HTS intact bilaterally Gait: unable to test Results Last Vital Signs Temp 97.3 F L 05/20/21 07:23 Pulse 91 H 05/20/21 07:23 Resp 17 05/20/21 07:23 BP 125/90 05/20/21 07:23 Pulse Ox 99 05/20/21 07:23 Labs Result diagrams: 05/20/21 06:30 05/20/21 14:45 Labs: Laboratory Results - last 24 hr 05/19/21 05/19/21 05/20/21 15:55 18:00 06:30 WBC RBC Hgb Hct MCV MCH MCHC RDW Plt Count MPV PT INR Sodium Potassium Chloride Carbon Dioxide Anion Gap BUN Creatinine Estimated GFR/1.73 m2 Glucose Calcium Ionized Calcium 0.94 L Magnesium Vitamin B12 Urine Color Yellow Urine Clarity Clear Urine pH 6.5 Ur Specific [place] 1.015 Urine Protein Negative Urine Ketones >=160 H Urine Blood Negative Urine Nitrite Negative Urine Bilirubin Small H Urine Urobilinogen 0.2 Ur Leukocyte Esterase Negative Urine Glucose Negative SARS-CoV-2 (PCR) Negative 05/20/21 05/20/21 05/20/21 06:30 06:30 06:30 WBC RBC Hgb Hct MCV MCH MCHC RDW Plt Count MPV PT 11.1 H INR 1.1 Sodium 131 L Potassium 2.9 L D Chloride 96 L Carbon Dioxide 21.0 Anion Gap 14.0 H BUN 3 L Creatinine 0.5 L Estimated GFR/1.73 m2 >= 60.00 Glucose 81 Calcium 6.8 L Ionized Calcium Magnesium 1.9 Vitamin B12 Cancelled 467 Urine Color Urine Clarity Urine pH Ur Specific [place] Urine Protein Urine Ketones Urine Blood Urine Nitrite Urine Bilirubin Urine Urobilinogen Ur Leukocyte Esterase Urine Glucose SARS-CoV-2 (PCR) 05/20/21 05/20/21 06:30 14:45 WBC 6.61 RBC 3.53 L Hgb 11.7 Hct 34.2 L MCV 96.9 H MCH 33.1 H MCHC 34.2 RDW 14.3 Plt Count 256 MPV 10.5 PT INR Sodium Potassium 3.9 D Chloride Carbon Dioxide Anion Gap BUN Creatinine Estimated GFR/1.73 m2 Glucose Calcium Ionized Calcium Magnesium Vitamin B12 Urine Color Urine Clarity Urine pH Ur Specific [place] Urine Protein Urine Ketones Urine Blood Urine Nitrite Urine Bilirubin Urine Urobilinogen Ur Leukocyte Esterase Urine Glucose SARS-CoV-2 (PCR)
--- NOTE | 2021-05-20 16:53 | PT.INIE ---
Date of service: 05/20/21 Time of Service: 16:53 PT Notes Visit Reasons: Weakness Physical Therapy Inpatient Initial Evaluation Date: 05/20/2021 Referring Doctor: Vivi Guzmán NP PT Orders: PT CONSULT: Eval/Treat Precautions: Fall. Standard. Activity as tolerated. Patient Profile/Admitting Diagnosis: Brenda is a 35-year-old female who presented to the ED on 05/19/2021 due to abdominal pain, nausea, and vomiting along with increasing numbness and tingling as well as loss of ability to walk. Patient is diagnosed with paresthesias, hypomagnesemia, dehydration, generalized weakness, ambulatory dysfunction, and neuropathy. Referral to neurology and general surgery made to address active medical problems. PMHX: All Active Problems (Updated 05/20/21 @ 17:06 by Myrna Pierre MD) Paresthesia (Acute) Hypokalemia (Acute) Discharge planning issues (Acute) DVT prophylaxis (Acute) Dental abscess (Acute) Facial swelling (Acute) Fibromyalgia (Acute) Back pain (Acute) Ambulatory dysfunction (Acute) Nausea & vomiting (Acute) Gallstones without obstruction of gallbladder (Acute) Hypomagnesemia (Acute) Weakness (Acute) Diarrhea (Acute) Acute dehydration (Acute) Weakness (Acute) Social History/Home Situation: Lived in [place] with significant other and two kids however she had a fall out with her significant other recently. Currently, her significant other and her two kids are in [place]. Here in [place], she lives with her brother in a private home with bathroom downstairs. Patient states that her brother is able to help her with whatever she needs but works 10 hour days. She has a friend who helps her out with showers. She has used a cane to aid with her walking since but these past two weeks, walking has been an impossibility. Has had increasing difficulty with walking since two weeks ago. Receives assistance from friend who works for with bathing. Equipment Owned/DME: Single-point cane Subjective: Agreeable to PT consult. Nauseous. Vomited 2-3 x upon arrival of PT. Told PT upfront that she is not able to stand and walk. Reports worsening tingling in her feet and numbness from her leg up to her whole thighs on both sides. Also complains of increasing tingling in her fingertips. Reports abdominal discomfort. She is not sure that with her being nauseous and being weak, she will be able to do anything. Did agree to try out the walker tomorrow morning. Reports that she has fallen one time in February and 4 times over the past weekend leading to this admission. Patient indicated that her goal is to get strong enough to be able to see her kids in [place] at the end of this month, she is planning on having her kids godparents help with taking care of her kids if her health status continue to be compromised. Objective: General Observation: Supine in bed. Telemetry monitoring in place. Self-care neglect apparent with the condition of her feet and fingernails. Contusions seen on R knee and bilateral arms. IV in R UE. Corado catheter in place. Mental Status: Alert and oriented as to person, place, time, and purpose. Able to pay attention, focus, and respond appropriately. Pain: Moderate pain in upper right abdominal area ROM: Right Upper Extremity: Shoulder Flexion WFL. Shoulder abduction WFL. Elbow flexion WFL. Wrist flexion WFL. Functional opening and closing of hand WFL. Left Upper Extremity: Shoulder Flexion WFL. Shoulder abduction WFL. Elbow flexion WFL. Wrist flexion WFL. Functional opening and closing of hand WFL. Right Lower Extremity: Hip flexion allows about 10 degrees with report of stiffness and fatigue at end of range. Hip abduction about 20 degrees on gravity eliminated plane. Knee flexion about 20 degrees with report of stiffness and fatigue at end of range. Ankle dorsiflexion WFL. Ankle plantarflexion WFL. Left Lower Extremity: Hip flexion allows about 10 degrees with report of stiffness and fatigue at end of range. Hip abduction about 20 degrees on gravity eliminated plane. Knee flexion about 20 degrees with report of stiffness and fatigue at end of range. Ankle dorsiflexion WFL. Ankle plantarflexion WFL. Strength: Right Upper Extremity: Shoulder flexors 4-/5. Shoulder abductors 4-/5. Elbow flexors 4-/5. Elbow extensors 4-/5. Production Truck Driver weak. Left Upper Extremity: Shoulder flexors 4-/5. Shoulder abductors 4-/5. Elbow flexors 4-/5. Elbow extensors 4-/5. Production Truck Driver weak. Right Lower Extremity: Hip flexors 2-/5. Hip abductors 2-/5. Knee flexors 2-/5. Knee extensors 2-/5. Ankle dorsiflexors 3+/5. Ankle plantarflexors 3+/5. Left Lower Extremity: Hip flexors 2-/5. Hip abductors 2-/5. Knee flexors 2-/5. Knee extensors 2-/5. Ankle dorsiflexors 3+/5. Ankle plantarflexors 3+/5. Sensation: Tingling in B feet and B fingernails. Numbness from the leg down to B thighs. Bed Mobility/Transfers: Unable to assess Gait: Unable to assess Balance: Unable to assess Special Tests: Mobility Limitations Standardized Measure [facility] AM-PAC 6 clicks Basic Mobility Inpatient Short Form: Raw Score: 6 CMS Score: 100% deficit Informed Consent/Education: Patient was instructed in purpose of PT consult and plan of care. Agreeable to proceed with established PT POC to achieve personal goals. Assessment: Weakness in B LE more pronounced than B UE. B dorsiflexion/plantarflexion within functional limits. Nausea and vomiting x 3 at time of PT arrival along with generalized weakness, numbness, and tingling limited ability of patient to participate in mobility assessment. Patient is highly anxious about putting weight on B LE due to repeated falls prior to ED admission. Will slowly attempt to use needed safety mobility device to facilitate progression in standing, transferring, and walking. Will benefit from OT services for self-care retraining. Patient presents with clinical signs and symptoms consistent with current/admitting diagnoses that have resulted to mobility limitations, gait instability, generalized weakness, and overall ADL decline as demonstrated by the following impairment level findings: 1. Decreased strength to B UE/LE major muscle groups 2. Impaired sitting/standing balance 3. Impaired activity tolerance 4. Limitation of joint range of motion in B LE joints 5. Anxiety over worsening medical condition and relationship break out with significant other Impairments are contributing to the following functional limitations: 1. Decline in bed mobility skills 2. Decline in transfer skills 3. Inability to ambulate 4. Increased risk for skin breakdown 5. Increased risk for falls Patient is assessed as a 64085 high complexity based on the following: History: 35-year-old female with past medical history as indicated above Examination: Demonstrable impairment in strength, balance, and mobility level with underlying impairments and functional limitations as exhibited above as well as deficit score of 100% utilizing the [facility] Mobility Inpatient Short Form Presentation: Unstable Decision Makin high complexity Goals: Goals X1 week 1. Supine-Sit minimal assist 2. Sit-Supine minimal assist 3. Sit-Stand minimal assist 4. Stand-Sit minimal assist with FWW 5. Bed-Chair minimal assist with FWW 6. Chair-Bed minimal assist with FWW 7. Minimal assist with FWW for gait on level surface for at least 50 feet without report of pain nor dyspnea 8. Fair static and dynamic standing balance/tolerance Plan of Care/Treatment Plan: 1-2x/day, 7 days/week x 1 week. Plan of care has been reviewed with the [employer] providing the service under Physical Therapy direction. Initiate Physical Therapy intervention for pain management as needed, strengthening, bed mobility, transfers, gait, stairs, balance training, and use of assistive device. DISCHARGE RECOMMENDATIONS: [] Home with no services [] [] Home with services [specify] [] Home with outpatient PT [] [X] SNF for continued rehabilitation. Patient will benefit from retirement facility placement for continued skilled physical therapy services in order to progress mobility level, strength, and balance in preparation for a safe discharge to home in [place]. [] [employer] Care [] [] SNF versus LTC based on ability to participate and progress [] TREATMENT CODE/TIME: 9716 3 x 27 minutes beginning at 16:53 PM. Thank you for the opportunity to participate in the care of this patient. Lina Elliott PT, DPT, CLT [facility] [place], [place]
[2021-05-20] MEDS: Ondansetron 4 MG/2 ML VIAL IVP (17:16)
[2021-05-20] MEDS: Prochlorperazine 10 MG/2 ML VIAL 5 MG IVP (20:54)
[2021-05-20] MEDS: Normal Saline Flush 10 ML SYR IVP (20:55)
[2021-05-20 22:42] LABS: Campylobacter PCR Negative (Negative); Salmonella PCR Negative (Negative); Shiga Toxin PCR Negative (Negative); Shigella/Enteroinvasive Ecoli Negative (Negative)
[2021-05-21] MEDS: Lactated Ringers 1,000 ML 125 ML IV (00:34)
[2021-05-21] MEDS: Clindamycin 150 MG CAP 450 MG PO ×2 (02:39→09:01)
[2021-05-21] MEDS: Ondansetron 4 MG/2 ML VIAL IVP ×2 (02:39→08:39)
[2021-05-21] MEDS: Normal Saline Flush 10 ML SYR IVP ×4 (02:40→20:12)
[2021-05-21] MEDS: Prochlorperazine 10 MG/2 ML VIAL 5 MG IVP ×2 (03:13→15:49)
[2021-05-21 05:32] VITALS: BP 133/99; PULSE 105; RESP 19; TEMP 36.2; O2SAT 99
[2021-05-21] MEDS: Metoprolol CR 25 MG TABCR PO (05:35)
[2021-05-21] MEDS: ACETAMINOPHEN 1,000 MG/100 ML BTL 400 MG IVPB (05:37)
[2021-05-21 07:09] VITALS: BP 119/87; PULSE 97; RESP 18; TEMP 36.2; O2SAT 99
[2021-05-21 07:19] LABS: Abs Immature Grans 0.03 10^3/uL (0.0-0.06); Absolute Basophil Count 0.03 10^3/uL (0.0-0.2); Absolute Eosinophil Count 0.06 10^3/uL (0.0-0.7); Absolute Lymphocyte Count 1.37 10^3/uL (1.2-3.4); Absolute Monocyte Count 0.47 10^3/uL (0.1-0.8); Absolute Neutrophil Count 4.03 10^3/uL (1.2-6.7); Basophils % 0.5; HCT 35.8 % (36.0-46.0); HGB 12.1 g/dL (11.2-15.7); Immature Grans % 0.5; Lymphocytes % 22.9; MCH 32.8 pg (27.0-33.0); MCHC 33.8 % (32.0-36.0); Monocytes % 7.8; Neutrophils % 67.3; Nucleated RBC 0 %; Platelet Count 249 10^3/uL (130-400); RBC 3.69 10^6/uL (3.93-5.22); RDW-SD 49.8 fL; WBC 5.99 10^3/uL (4.4-10.8)
[2021-05-21 07:25] LABS: ESR < 1 mm/hr (0-20)
--- NOTE | 2021-05-21 07:30 | DI.MRI_ITS ---
Exam(s) MR BRAIN WO EXAM: MR BRAIN WO CLINICAL HISTORY: numbness tingling, reduced DTR, and inability to w TECHNIQUE: Multiplanar multisequence MRI of the brain was performed. COMPARISON: CT CT HEAD/BRAIN W/O CONTRAST from 04/25/2014 FINDINGS: The examination is limited due to patient motion artifact. VENTRICLES AND EXTRA AXIAL SPACES: Normal in size and morphology for the patient's age. MIDLINE SHIFT: None. CEREBRAL PARENCHYMA: No focus of restricted diffusion to suggest acute infarct. No space-occupying le jordi identified. HEMORRHAGE: None. BRAINSTEM/CEREBELLUM: Normal. CALVARIUM: Normal. VISUALIZED PARANASAL SINUSES/MASTOIDS:Clear. MARSHALL OF MARX: Normal flow void. PITUITARY GLAND: Unremarkable. OTHER FINDINGS: None. IMPRESSION: Unremarkable MRI of the brain. DATA REPOSITORY:
--- NOTE | 2021-05-21 07:30 | DI.MRI_ITS ---
Exam(s) MR LUMBAR SPINE WO EXAM: MR LUMBAR SPINE WO CLINICAL HISTORY: numbness tingling, reduced DTR, and inability to w. TECHNIQUE: Multiplanar multisequence MRI of the Lumbar spine was performed. COMPARISON: CR XR LS SPINE 2-3 VIEWS from 04/25/[address] THORAX ABD/PEL CTA from 05/19/[address] THORACIC LUMBAR SPINE REC from 05/19/2021 FINDINGS: The examination is limited due to patient motion artifact. Bones: The last intervertebral disc space is designated the L5/S1 level for the numbering purpose of this examination. The vertebral body heights are well maintained. Alignment is satisfactory. The si gnal characteristics are unremarkable. Cord: The conus tip ends at the T12 level. It is of normal size and signal intensity. T12-L1: No disc herniations or bulges are present. No central spinal canal or neural foraminal stenos is. L1-2: No disc herniations or bulges are present. No central spinal canal or neural foraminal stenosis . L2-3: No disc herniations or bulges are present. No central spinal canal or neural foraminal stenosis . L3-4: No disc herniations or bulges are present. No central spinal canal or neural foraminal stenosis . L4-5: No disc herniations or bulges are present. No central spinal canal or neural foraminal stenosis . L5-S1: No disc herniations or bulges are present. No central spinal canal or neural foraminal stenosi s. Soft tissues: The visualized SI joints and sacrum are well maintained. The paraspinal soft tissues ar e unremarkable. Visualized abdominal organs: There is a small amount of fluid again seen in the pelvis. This was pre sent on the CT scan of the abdomen and pelvis from 05/19/2021 IMPRESSION: 1. Examination compromised due to patient motion artifact. 2. No focal disc herniation, central spinal canal or neural foraminal stenosis in the lumbar spine. DATA REPOSITORY:
[2021-05-21 07:31] LABS: Anion Gap 11.2 mmol/L (3-11); BUN 1 mg/dL (7-18); CO2 20.8 mmol/L (21.0-32.0); CREATININE 0.6 mg/dL (0.55-1.02); Calcium 7.4 mg/dL (8.5-10.1); Chloride 95 mmol/L (98-107); Glucose 100 mg/dL (74-106); Potassium 4.1 mmol/L (3.5-5.1); Sodium 127 mmol/L (136-145)
[2021-05-21 07:35] VITALS: BP 127/92; PULSE 92; RESP 19; O2SAT 99
[2021-05-21 07:59] LABS: ALT 31 U/L (14-59); AST 29 U/L (15-37); Albumin 2.4 g/dL (3.4-5.0); Alkaline Phosphatase 48 U/L (46-116); Bilirubin, Direct 0.3 mg/dL (0.0-0.2); Bilirubin, Total 0.6 mg/dL (0.2-1.0); Total Protein 5.1 g/dL (6.4-8.2)
[2021-05-21] MEDS: Normal Saline 1,000 ML 125 ML IV (08:33)
[2021-05-21] MEDS: Omeprazole 20 MG CAPCR 40 MG PO (09:00)
[2021-05-21] MEDS: Potassium Chloride 20 MEQ TABCR PO ×3 (09:00→20:12)
[2021-05-21] MEDS: Pregabalin 25 MG CAP PO ×3 (09:01→20:12)
[2021-05-21] MEDS: DULoxetine 20 MG CAP PO (09:01)
[2021-05-21] MEDS: Calcium Carbonate *TUMS* 500 MG CHEW 1000 MG PO (09:01)
--- NOTE | 2021-05-21 09:32 | CMPROGNOTE_ITS ---
- If Service Date Differs Date of service: 05/21/21 Time of Service: 09:32 Care Management Progress Note S/O: Brenda was sitting up in bed when CM met with her. She was alert, oriented and easily engaged in conversation. She continues to have tingling and numbness in her feet. Impaired strength, balance and weakness are noted by PT. Pt reports blurry vision and facial numbness, RN aware. Brenda denies any known tick exposure, however she routinely camps and hikes during the summer months. CM discussed with provider and a tick and lyme panel will be ordered. A: 35 year old female admitted to [facility] on 05/19/21 for weakness. P: Anticipate Brenda will be discharged home with [facility] RN/PT vs SNF for continued rehab when medically cleared by provider. Transportation dependent on disposition. Follow up with community providers and discharge plan of care as prescribed.
[2021-05-21] MEDS: diazePAM 2 MG TAB PO (10:12)
[2021-05-21] MEDS: metroNIDAZOLE 500 MG/100 ML BAG 100 MG IVPB ×2 (10:12→18:14)
[2021-05-21] MEDS: levoFLOXacin 750 MG/150 ML BAG 100 MG IVPB (13:45)
[2021-05-21 15:39] VITALS: BP 130/85; PULSE 121; RESP 19; TEMP 35.6; O2SAT 99
--- NOTE | 2021-05-21 16:23 | PGE_ITS ---
Date of Service Date of service: 05/21/21 Time of Service: 09:20 Assessment and Plan Assessment and plan (1) Weakness: Start date: 05/21/21 Start time: 09:20 Status: Acute Assessment and plan: Unsure source. MRI revealin. Examination compromised by significant patient motion artifact. 2. Mild prominence of the osteophyte disc complex at C5-C6 but no significant central spinal canal or neural foraminal stenosis results. 3. Normal spinal cord signal. No evidence of central spinal canal or neural foraminal stenosis in the cervical spine. 1. Examination compromised due to patient motion artifact. 2. No focal disc herniation, central spinal canal or neural foraminal stenosis in the lumbar spine. IMPRESSION: Unremarkable MRI of the brain. Weakness throughout, Decreased sensation (see note) Decreased DTR to Will await neurology recommendations Labs so far K and Sodium , BUN and creatinine low otherwise normal Will check ESR Calcium also low will give calcium BID and given calcium gluconate yesterday level increased to 7 today will monitor. Believe there is also a component of depression. Start on low dose antidepressant, will trial cymbalta as this also helps with pain, States back is already feeling better (2) Enteritis: Start date: 05/21/21 Start time: 09:20 Status: Acute Assessment and plan: Imaging revealing enteritis with colitis, she has been vomiting with diarrhea for days, will treat with levaquin and flagyl. (3) Hypokalemia: Start date: 05/21/21 Start time: 09:20 Status: Resolved Assessment and plan: Resolved. Continue to monitor. (4) Acute dehydration: Start date: 05/21/21 Start time: 09:20 Status: Acute Assessment and plan: Patient hydrated stop IVF especially in setting of Sodium (5) Gallstones without obstruction of gallbladder: Start date: 05/21/21 Start time: 09:20 Status: Acute Assessment and plan: Surgery consulted, this can be done as outpatient, not emergent. (6) Nausea & vomiting: Start date: 05/21/21 Start time: 09:20 Status: Acute Assessment and plan: Nausea this morning states d/t trying to take tums. Switched from tums to calcium carb/vitamin d bid (7) Ambulatory dysfunction: Start date: 05/21/21 Start time: 09:20 Status: Acute Assessment and plan: She states progressive weakness causing her to be uable to walk since Thursday however she does have sensatiion in her feet. Not ascending weakness. PT consulted (8) Back pain: Start date: 05/21/21 Start time: 09:20 Status: Acute Assessment and plan: C/o severe back pain to spine especially with palpation this has improved per patient aqua k pack ordered (9) Fibromyalgia: Start date: 05/21/21 Start time: 09:20 Status: Acute Assessment and plan: She states diagnosis of this in the past, was on lyrica before. Will restart as she states pain to back and other areas. Also aqua K kody (10) Facial swelling: Start date: 05/21/21 Start time: 09:20 Status: Acute Assessment and plan: D/t dental abscess, clinda d/cd due to being on levaq uin and flagyl for enteritis and colitis on imaging (11) Hepatitis C test positive: Start date: 05/21/21 Start time: 09:20 Status: Acute Assessment and plan: Both her and are positive from hx of IV drug use. She was not treated but was (12) Dental abscess: Start date: 05/21/21 Start time: 09:20 Status: Acute Assessment and plan: as above (13) Discharge planning issues: Start date: 05/21/21 Start time: 09:20 Status: Acute Assessment and plan: She wants to go to rehab will have PT evaluate. discussed with Dr Rowe. Subjective Subjective Patient reports: other Interval history since last seen: Patient c/o dizziness this am. She states she told everyone yesterday however no providers were aware. Will give one dose of valium and ask PT to help with dizziness. Her stories and symptoms are inconsistent. Her sodium did drop from 131 to 127. Will d/c IVF, give baby dose lasix to increase sodium. Also her calcium was low at 6 yesterday and ionized 0.9 given calcium gluconate IVBP.7 today. She is also on calcium BID. Will have nerve conduction by Dr. Fox tomorrow as MRI were normal. Exam Narrative Exam Narrative: RA HEENT atraumatic; neck supple; lungs clear; heart tachy/regular; abdomen hypoactive BS, soft, mild RUG tenderness w/o rebound; extremities w/o edema; neuro Ox3, CN intact, motor 5t/5 propx/distal; sensory decreased light touch reported throughout entire body; DTR trace to absent throughout Objective Last Vital Signs Temp 35.6 C L 05/21/21 15:39 Pulse 121 H 05/21/21 15:39 Resp 19 05/21/21 15:39 BP 130/85 05/21/21 15:39 Pulse Ox 99 05/21/21 15:39 Laboratory Results - last 24 hr 05/19/21 05/20/21 05/20/21 09:30 06:30 09:30 WBC RBC Hgb Hct MCV MCH MCHC RDW Plt Count MPV Immature Gran % Neutrophils % Lymphocytes % Monocytes % Eosinophils % Basophils % Nucleated RBC % Absolute Neutrophils Absolute Lymphocytes Absolute Monocytes Absolute Eosinophils Absolute Basophils ESR Sodium Potassium Chloride Carbon Dioxide Anion Gap BUN Creatinine Estimated GFR/1.73 m2 Glucose Calcium Ionized Calcium 0.94 L Total Bilirubin Conjugated Bilirubin AST ALT Alkaline Phosphatase Total Protein Albumin Stool Campylobacter PCR Negative Stool Salmonella PCR Negative Stool Shigella PCR Negative Cryptosporidium/Giardia SEE BELOW Shiga Toxin (PCR) Negative 05/21/21 05/21/21 05/21/21 06:45 06:45 06:45 WBC 5.99 RBC 3.69 L Hgb 12.1 Hct 35.8 L MCV 97.0 H MCH 32.8 MCHC 33.8 RDW 14.0 Plt Count 249 MPV 10.0 Immature Gran % 0.5 Neutrophils % 67.3 Lymphocytes % 22.9 Monocytes % 7.8 Eosinophils % 1.0 Basophils % 0.5 Nucleated RBC % 0 Absolute Neutrophils 4.03 Absolute Lymphocytes 1.37 Absolute Monocytes 0.47 Absolute Eosinophils 0.06 Absolute Basophils 0.03 ESR Sodium 127 L Potassium 4.1 Chloride 95 L Carbon Dioxide 20.8 L Anion Gap 11.2 H BUN 1 L Creatinine 0.6 Estimated GFR/1.73 m2 >= 60.00 Glucose 100 Calcium 7.4 L Ionized Calcium Total Bilirubin 0.6 Conjugated Bilirubin 0.3 H AST 29 ALT 31 Alkaline Phosphatase 48 Total Protein 5.1 L Albumin 2.4 L Stool Campylobacter PCR Stool Salmonella PCR Stool Shigella PCR Cryptosporidium/Giardia Shiga Toxin (PCR) 05/21/21 06:45 WBC RBC Hgb Hct MCV MCH MCHC RDW Plt Count MPV Immature Gran % Neutrophils % Lymphocytes % Monocytes % Eosinophils % Basophils % Nucleated RBC % Absolute Neutrophils Absolute Lymphocytes Absolute Monocytes Absolute Eosinophils Absolute Basophils ESR < 1 Sodium Potassium Chloride Carbon Dioxide Anion Gap BUN Creatinine Estimated GFR/1.73 m2 Glucose Calcium Ionized Calcium Total Bilirubin Conjugated Bilirubin AST ALT Alkaline Phosphatase Total Protein Albumin Stool Campylobacter PCR Stool Salmonella PCR Stool Shigella PCR Cryptosporidium/Giardia Shiga Toxin (PCR) PAWSS Have you Been Recently Intoxicated or Drunk Within the Last 30 days?: Yes Have you Ever Experienced Previous Episodes of Alcohol Withdrawal?: No Have you ever Experienced Withdrawal Seizures?: No Have you ever Experienced Delirium Tremens(DT)s?: No Have you ever undergone Alcohol Rehabilitation Treatment (i.e, inpt ot outpatient treatment programs)?: No Have you ever Experienced Blackouts?: No Have you ever Combined Alcohol with other Downers within the last 90 days?: No Have you ever Combined Alcohol with any other Substance of Abuse during the last 90 days?: No Positive Blood Alcohol level on Presentation? [PCS.BAL]: No Result: 1
--- NOTE | 2021-05-21 16:35 | W.PM.PROGNOT ---
Date of Service Date of service: 05/21/21 Time of Service: 16:35 Assessment and Plan Assessment and plan (1) Weakness: Status: Acute (2) Ambulatory dysfunction: Status: Acute (3) Paresthesia: Status: Acute Assessment and plan: Ms. Voss is a 35 year-old, right-handed woman who presents with chronic progressive paraesthesias and now weakness, with inability to ambulate. Her neurological exam was notable for functional overlay and complicated by giveway weakness. She is grossly hypo/areflexic. Brain and c-spine imaging unremarkable. L-spine imaging also unremarkable. Will plan for NCS tomorrow if I am able to get machine to hospital. Per primary team, prefer no steroids at this time while infectious colitis. Continue PT/OT. Subjective Subjective Interval history since last seen: No change in weakness/numbness - no better or worse. Emesis/diarrhea improved. Na down to 127. CRP 0. -MRI brain (05/21/21): unremarkable. I reviewed these images personally and this is my personal interpretation. -MRI C-spine (05/21/21): no significant central or NF narrowing. I reviewed these images personally and this is my personal interpretation. -MRI L-spine (05/21/21): no significant central or NF narrowing. I reviewed these images personally and this is my personal interpretation. Exam Narrative Exam Narrative: Physical Exam: Constitutional: Patient of apparent stated age, well nourished, well developed, no acute distress Neuro: MS/Language/Speech: Alert, oriented, clear language (fluency and comprehension), no dysarthria Motor: Normal bulk and tone. FMM intact, no pronator drift. 5/5 strength in bilateral upper extremities. Proximal LE 3/5 bilaterally. Distally 5/5. Reflexes: hyporeflexic/areflexic throughout; downgoing toes Coordination: Finger to nose performed without dysmetria Objective Last Vital Signs Temp 96.1 F L 05/21/21 15:39 Pulse 121 H 05/21/21 15:39 Resp 19 05/21/21 15:39 BP 130/85 05/21/21 15:39 Pulse Ox 99 05/21/21 15:39 Laboratory Results - last 24 hr 05/19/21 05/20/21 05/20/21 09:30 06:30 09:30 WBC RBC Hgb Hct MCV MCH MCHC RDW Plt Count MPV Immature Gran % Neutrophils % Lymphocytes % Monocytes % Eosinophils % Basophils % Nucleated RBC % Absolute Neutrophils Absolute Lymphocytes Absolute Monocytes Absolute Eosinophils Absolute Basophils ESR Sodium Potassium Chloride Carbon Dioxide Anion Gap BUN Creatinine Estimated GFR/1.73 m2 Glucose Calcium Ionized Calcium 0.94 L Total Bilirubin Conjugated Bilirubin AST ALT Alkaline Phosphatase Total Protein Albumin Stool Campylobacter PCR Negative Stool Salmonella PCR Negative Stool Shigella PCR Negative Cryptosporidium/Giardia SEE BELOW Shiga Toxin (PCR) Negative 05/21/21 05/21/21 05/21/21 06:45 06:45 06:45 WBC 5.99 RBC 3.69 L Hgb 12.1 Hct 35.8 L MCV 97.0 H MCH 32.8 MCHC 33.8 RDW 14.0 Plt Count 249 MPV 10.0 Immature Gran % 0.5 Neutrophils % 67.3 Lymphocytes % 22.9 Monocytes % 7.8 Eosinophils % 1.0 Basophils % 0.5 Nucleated RBC % 0 Absolute Neutrophils 4.03 Absolute Lymphocytes 1.37 Absolute Monocytes 0.47 Absolute Eosinophils 0.06 Absolute Basophils 0.03 ESR Sodium 127 L Potassium 4.1 Chloride 95 L Carbon Dioxide 20.8 L Anion Gap 11.2 H BUN 1 L Creatinine 0.6 Estimated GFR/1.73 m2 >= 60.00 Glucose 100 Calcium 7.4 L Ionized Calcium Total Bilirubin 0.6 Conjugated Bilirubin 0.3 H AST 29 ALT 31 Alkaline Phosphatase 48 Total Protein 5.1 L Albumin 2.4 L Stool Campylobacter PCR Stool Salmonella PCR Stool Shigella PCR Cryptosporidium/Giardia Shiga Toxin (PCR) 05/21/21 06:45 WBC RBC Hgb Hct MCV MCH MCHC RDW Plt Count MPV Immature Gran % Neutrophils % Lymphocytes % Monocytes % Eosinophils % Basophils % Nucleated RBC % Absolute Neutrophils Absolute Lymphocytes Absolute Monocytes Absolute Eosinophils Absolute Basophils ESR < 1 Sodium Potassium Chloride Carbon Dioxide Anion Gap BUN Creatinine Estimated GFR/1.73 m2 Glucose Calcium Ionized Calcium Total Bilirubin Conjugated Bilirubin AST ALT Alkaline Phosphatase Total Protein Albumin Stool Campylobacter PCR Stool Salmonella PCR Stool Shigella PCR Cryptosporidium/Giardia Shiga Toxin (PCR) PAWSS Have you Been Recently Intoxicated or Drunk Within the Last 30 days?: Yes Have you Ever Experienced Previous Episodes of Alcohol Withdrawal?: No Have you ever Experienced Withdrawal Seizures?: No Have you ever Experienced Delirium Tremens(DT)s?: No Have you ever undergone Alcohol Rehabilitation Treatment (i.e, inpt ot outpatient treatment programs)?: No Have you ever Experienced Blackouts?: No Have you ever Combined Alcohol with other Downers within the last 90 days?: No Have you ever Combined Alcohol with any other Substance of Abuse during the last 90 days?: No Positive Blood Alcohol level on Presentation? [PCS.BAL]: No Result: 1
[2021-05-21] MEDS: Furosemide 20 MG TAB PO (17:01)
[2021-05-21 17:02] VITALS: PULSE 118
--- NOTE | 2021-05-21 17:10 | DI.MRI_ITS ---
Exam(s) MR CERVICAL SPINE WO EXAM: MR CERVICAL SPINE WO CLINICAL HISTORY: numbness tingling, reduced DTR, and inability to w TECHNIQUE: Multiplanar multisequence MRI of the cervical spine was performed without intravenous con trast. COMPARISON: No exams were available for comparison FINDINGS: The examination is limited due to patient motion artifact. BONES: Vertebral body heights are maintained. Intervertebral disc spaces are normal. Alignment is nor mal. Bone marrow signal intensity is within normal limits. CERVICAL CORD: Craniovertebral junction is unremarkable. The cervical cord is normal size and signal intensity. SOFT TISSUES: Unremarkable. C2-3: No disc herniation or bulge is identified. No significant central spinal canal or neural forami nal stenosis. C3-4: No disc herniation or bulge is identified. No significant central spinal canal or neural forami nal stenosis C4-5: No disc herniation or bulge is identified. No significant central spinal canal or neural forami nal stenosis C5-6: Mild prominence of the osteophyte disc complex. No significant central spinal canal or neural foraminal stenosis C6-7: No disc herniation or bulge is identified. No significant central spinal canal or neural forami nal stenosis C7-T1: No disc herniation or bulge is identified. No significant central spinal canal or neural kami inal stenosis IMPRESSION: 1. Examination compromised by significant patient motion artifact. 2. Mild prominence of the osteophyte disc complex at C5-C6 but no significant central spinal canal or neural foraminal stenosis results. 3. Normal spinal cord signal. No evidence of central spinal canal or neural foraminal stenosis in th e cervical spine. DATA REPOSITORY:
--- NOTE | 2021-05-21 17:11 | CHAPLAIN ---
I had a brief visit with Brenda. She was sitting up in bed, not feeling well. I introduced myself, explained my role and offered support.
[2021-05-21 17:13] LABS: Sodium 128 mmol/L (136-145)
[2021-05-21 17:23] LABS: Magnesium 1.2 mg/dL (1.8-2.4)
[2021-05-21 18:37] LABS: Tissue Transglutaminase Ab IgA <1.2 U/mL; Tissue Transglutaminase Ab IgG <1.2 U/mL
[2021-05-21] MEDS: Acetaminophen 500 MG TAB 1000 MG PO (20:11)
[2021-05-21] MEDS: Calcium 600mg/Vit D 200U TAB 2 TAB PO (20:12)
[2021-05-21] MEDS: Ibuprofen 600 MG TAB PO (23:36)
[2021-05-21] MEDS: Zolpidem 5 MG TAB PO (23:36)
[2021-05-21 23:54] VITALS: BP 112/83; PULSE 96; RESP 22; TEMP 36.8; O2SAT 99
[2021-05-22] MEDS: MAGNESIUM SULFATE 4 GM/100 ML BAG IVPB (01:00)
[2021-05-22] MEDS: Normal Saline Flush 10 ML SYR IVP ×2 (01:01→10:05)
[2021-05-22] MEDS: metroNIDAZOLE 500 MG/100 ML BAG 100 MG IVPB ×2 (02:13→10:13)
[2021-05-22] MEDS: Metoprolol CR 25 MG TABCR PO (06:35)
[2021-05-22 07:23] VITALS: BP 110/80; PULSE 105; RESP 16; TEMP 36.2; O2SAT 99
[2021-05-22 07:40] LABS: Anion Gap 8.8 mmol/L (3-11); CO2 22.2 mmol/L (21.0-32.0); CREATININE 0.5 mg/dL (0.55-1.02); Calcium 7.6 mg/dL (8.5-10.1); Chloride 96 mmol/L (98-107); Glucose 105 mg/dL (74-106); Potassium 4.2 mmol/L (3.5-5.1); Sodium 127 mmol/L (136-145)
[2021-05-22 07:42] LABS: BUN 1 mg/dL (7-18)
[2021-05-22] MEDS: Calcium 600mg/Vit D 200U TAB 2 TAB PO ×2 (08:14→19:55)
[2021-05-22] MEDS: Pregabalin 25 MG CAP PO ×3 (08:14→19:55)
[2021-05-22] MEDS: DULoxetine 20 MG CAP PO (08:14)
[2021-05-22] MEDS: Magnesium Chloride 64 MG TABCR PO ×2 (08:14→19:54)
[2021-05-22] MEDS: Potassium Chloride 20 MEQ TABCR PO ×3 (08:14→19:55)
[2021-05-22] MEDS: Famotidine 20 MG TAB PO (08:15)
--- NOTE | 2021-05-22 09:22 | PDOC.CMPRO ---
- If Service Date Differs Date of service: 05/22/21 Time of Service: 09:22 Care Management Progress Note S/O: Brenda denies any known tick exposure, however she routinely camps and hikes during the summer months. CM discussed with provider and a tick and lyme panel will be ordered. A: 35 year old female admitted to [facility] on 05/19/21 for weakness. P: Anticipate Brenda will be discharged home with New VNA RN/PT vs SNF for continued rehab when medically cleared by provider. Transportation dependent on disposition. Follow up with community providers and discharge plan of care as prescribed.
--- NOTE | 2021-05-22 10:39 | PT.INTREAT ---
Date of service: 05/21/21 Time of Service: 10:39 PT Notes Visit Reasons: Weakness Physical Therapy Inpatient Treatment Note Date: 05/21/2021 Precautions: Fall. Standard. Activity as tolerated. Subjective: Did not report any dizziness throughout session. Agreeable only to getting out of bed using the STEDY lift. States that she will be willing to work with PT more if the MRI does not show any new worrisome issues later. Objective: General Observation: Supine in bed. Telemetry monitoring in place. IV access in R UE. Corado catheter in place. Mental Status: Alert and oriented as to person, place, time, and purpose. Able to pay attention, focus, and respond appropriately. Pain: Moderate pain in upper right abdominal area. Sensation: Continues to report numbness in B LE Bed Mobility/Transfers: Supine to sit: Minimal assist with HOB at 30 degrees Sit to stand: minimal assist using STEDY lift Stand to sit: contact guard assist using the STEDY lift Bed to chair: assist of 2 using STEDY lift just for safety but patient did not need physical assistance Chair to bed: assist of 2 using STEDY lift just for safety but patient did not need physical assistance Gait: Unable at this time Balance: Static sitting: Normal Dynamic sitting: Normal Static standing: Poor Dyanmic standing: Poor Assessment: Highly anxious and almost tearful about getting out of bed today. Agreeable with trying out the STEDY lift for now to see how she does and is amenable to working more until result from MRI is received to see if there are new issues involving her spine. With encouragement, was able to tolerate standing and seated level exercises. DISCHARGE RECOMMENDATIONS: [] Home with no services [] [] Home with services [specify] [] Home with outpatient PT [] [X] SNF for continued rehabilitation. Patient will benefit from nursing home facility placement for continued skilled physical therapy services in order to progress mobility level, strength, and balance in preparation for a safe discharge to home in [place]. [] [facility] [] [] SNF versus LTC based on ability to participate and progress [] TREATMENT CODE/TIME: 05419 x 20 minutes, 32154 x 19 minutes beginning at 10:39 PM.
[2021-05-22 10:54] LABS: Magnesium 3.4 mg/dL (1.8-2.4)
[2021-05-22] MEDS: Acetaminophen 500 MG TAB 1000 MG PO (11:17)
--- NOTE | 2021-05-22 11:24 | NUR.NOTE ---
Accessed patient record to confirm documentation of an EKG done at this visit in the ED. Shawna Mane Nursing Note:
--- NOTE | 2021-05-22 12:17 | W.PM.DS.N ---
Date of service: 05/22/21 Time of Service: 12:17 DS: Diagnosis Discharge Diagnosis (1) Gallstones without obstruction of gallbladder: Status: Acute (2) Weakness: Status: Acute (3) Diarrhea: Status: Acute (4) Acute dehydration: Status: Acute Discharge Plan Disposition Patient Disposition: HOME W/HOME HEALTH SERVICE Condition: Stable Discharge Details Reason For Visit: Weakness Admit Date/Time: 05/19/21 19:19 Admit Provider: Jorge Owens Attending Provider: Jorge Owens Primary Care Provider: Nicolas Hartmann [facility] Course Hospital Course: This is a 35 female with history of chronic unspecified neuropathy, cholelithiasis, unspecified tachycardia and recurrent diarrhea, usual care at [facility], says she is here because she hasn't gotten answers. Stated she has had ascending sensory changes in stocking/glove fashion since last summer, has not seen neuro; states she has had intermittent bouts of abdominal pain, nausea and vomiting and diarrhea, and was told she should have her gall bladder removed (unclear why this has not happened) and comes in reporting 2 weeks of unremitting watery diarrhea and progressive weakness to the point where she was unable to ambulate. Work up in ER of note for white count 8.5; Na 130, K 4.0, Mg 1.1; BUN 7/Creat 0.5; Albumin 2.9, TSH 1.0; CT abdomen few tiny gall stones, no signs cholycystitis, mild ileitis and proximal colitis. Patient has received IVF, Zofran, Dilaudid and MgSO4. She was admitted to med/surg unit. Her electrolytes were replaced. She was placed on levaquin and flagyl to treat her enteritis. She was seen by physical therapy and found to be re-ambulating safely with walker. She underwent MRI with no findings to explain her symptoms. Neurology following and nerve conduction testing pending. discharge discussed with DR Jae Grosss and New Rx's Prescriptions: Continued metoprolol succinate 25 mg tablet extended release 24 hr 25 mg PO DAILY AM RF: 0 ondansetron 4 mg tablet,disintegrating 4 mg PO PRN PRNRF: 0 potassium chloride 20 mEq tablet extended release 20 meq PO BID RF: 0 omeprazole 40 mg capsule,delayed release(DR/EC) 40 mg PO DAILY AM RF: 0 albuterol sulfate [ProAir HFA] 90 mcg/actuation HFA aerosol inhaler 2 puff INHALATION PRN PRNRF: 0 prochlorperazine 25 mg suppository FL RF: 0 Discharge Instructions Instructions: Weakness (DC) Additional Instructions: take all medication as prescribed do not drink alcohol Referrals: Nicolas Hartmann [Primary Care Provider] - Activity:: Activity as Tolerated Equipment/Supplies:: Walker Diet:: As Tolerated Exam Const General: cooperative and ill appearing acutely Nutritional Appearance: thin Orientation: alert, awake and oriented x3 HENMT Mouth: oral mucosa abnormal (dry) erythematous Resp Effort & Inspection: normal respiratory effort, able to speak in complete sentences and no respiratory distress Auscultation: clear to auscultation bilaterally Cardio Rhythm: regular rhythm GI Inspection: other (round, soft) Skin General skin exam: no rashes or lesions noted Neuro General: patient alert, patient awake, patient oriented x3, moves all extremities and no focal motor deficits DS: Data Vitals/I&O Vitals and I&O: Vital Signs Temperature 36.2 C L 05/22/21 07:23 Temperature Source Tympanic 05/22/21 07:23 Pulse 105 H 05/22/21 07:23 Pulse Rhythm Regular 05/22/21 08:00 Pulse 122 H 05/19/21 19:50 Respiratory Rate 16 05/22/21 07:23 Respiratory Effort Non-Labored 05/22/21 08:00 Respiratory Depth Normal 05/22/21 08:00 Respiratory Pattern Normal 05/22/21 08:00 Blood Pressure 110/80 05/22/21 07:23 Blood Pressure Mean 100 05/19/21 19:46 Blood Pressure Position Supine 05/19/21 15:01 Pulse Oximetry 99 05/22/21 07:23 Oxygen Delivery Method Room Air 05/22/21 07:23 Oxygen Flow Rate 0 05/22/21 07:23 Pain Level 8 05/22/21 11:17 Intake & Output 05/21/21 05/22/21 05/22/21 23:59 11:59 23:59 Intake Total 1610 / 3983.75 420 / 420 Output Total 2500 / 3850 750 / 750 Balance -890 / 133.75 -330 / -330 Intake: IV 1270 / 3373.75 120 / 120 Oral 340 / 610 300 / 300 Output: Urine 2500 / 3850 750 / 750 Other: Urine Color Pale Straw Urine Appearance Clear Clear Data Completed and Pending Labs on day of discharge: Labs from last 24 hours 05/22/21 05/22/21 05/22/21 06:59 06:59 06:59 Sodium 127 L Potassium 4.2 Chloride 96 L Carbon Dioxide 22.2 Anion Gap 8.8 BUN 1 L Creatinine 0.5 L Estimated GFR/1.73 m2 >= 60.00 Glucose 105 Calcium 7.6 L Ionized Calcium Pending Magnesium Cortisol Pending Tiss Transglutamin IgG Tiss Transglutamin IgA A.phagocytophil DNA PCR B. divergens/MO-1 PCR Babesia duncani (PCR) Babesia microti DNA PCR Borrelia (PCR) Lyme Disease Antibody E.chaffeensis DNA (PCR) E.ewingii/canis DNA PCR E. muris-like DNA (PCR) 05/22/21 05/21/21 05/21/21 06:45 17:05 17:00 Sodium 128 L Potassium Chloride Carbon Dioxide Anion Gap BUN Creatinine Estimated GFR/1.73 m2 Glucose Calcium Ionized Calcium Magnesium 3.4 H 1.2 L Cortisol Tiss Transglutamin IgG Tiss Transglutamin IgA A.phagocytophil DNA PCR B. divergens/MO-1 PCR Babesia duncani (PCR) Babesia microti DNA PCR Borrelia (PCR) Lyme Disease Antibody E.chaffeensis DNA (PCR) E.ewingii/canis DNA PCR E. muris-like DNA (PCR) 05/21/21 05/20/21 06:45 06:30 Sodium Potassium Chloride Carbon Dioxide Anion Gap BUN Creatinine Estimated GFR/1.73 m2 Glucose Calcium Ionized Calcium Magnesium Cortisol Tiss Transglutamin IgG <1.2 Tiss Transglutamin IgA <1.2 A.phagocytophil DNA PCR Pending B. divergens/MO-1 PCR Pending Babesia duncani (PCR) Pending Babesia microti DNA PCR Pending Borrelia (PCR) Pending Lyme Disease Antibody Pending E.chaffeensis DNA (PCR) Pending E.ewingii/canis DNA PCR Pending E. muris-like DNA (PCR) Pending [facility] All Active Problems (Updated 05/22/21 @ 16:48 by Myrna Pierre MD) Peripheral neuropathy (Acute) Enteritis (Acute) Hepatitis C test positive (Acute) Paresthesia (Acute) Discharge planning issues (Acute) DVT prophylaxis (Acute) Dental abscess (Acute) Facial swelling (Acute) Fibromyalgia (Acute) Back pain (Acute) Ambulatory dysfunction (Acute) Nausea & vomiting (Acute) Gallstones without obstruction of gallbladder (Acute) Hypomagnesemia (Acute) Weakness (Acute) Diarrhea (Acute) Acute dehydration (Acute) Weakness (Acute) Social History (Updated 05/21/21 @ 16:41 by Myrna Pierre MD) Smoking/Tobacco Use Status: Current every day Tobacco Type: cigarettes Smoking risk assessment performed?: Yes Alcohol Intake: current Alcohol Intake frequency: 3 or more drinks per day Drug use: Current Sobriety Substance use type: former substance user Number of Children: 4 current occupation: Unemployed Do you feel safe at home: Yes Additional Social history: Kids age 12 and 10 live with her ex-. Has twins age 9. Was unable to care for them. Her aunt adopted them at . 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
--- NOTE | 2021-05-22 12:46 | PDOC.CMDIS ---
- If Service Date Differs Date of service: 05/22/21 Time of Service: 12:46 LACE Index Scoring Tool - Questions: Length of Stay (in days): 3 Acuity (Admit via E.D.?): Yes E.D. Visits: 1 - Answers: Total Score: 7 Risk of Readmission: Low Risk Care Management Discharge Reason for Hospitalization: Weakness, abdominal pain, dehydration, diarrhea Discharge Plan: Brenda discharged home with new VNA services (RN/PT/OT/[employer]) via private vehicle with brother. Brenda declines SNF for short term rehab at this time. Brenda agrees to follow up with community providers and discharge plan of care as prescribed. Patient/Family Education Needs: Review discharge instructions, limitations, medications and plan to follow up with community providers. ask me three. Services Needed at Discharge: Home Health Care Services ([facility]: RN/PT/OT/SENIOR [employer]INCIPAL SOFTWARE ENGINEER)
--- NOTE | 2021-05-22 14:11 | PT.INTREAT ---
Date of service: 05/22/21 Time of Service: 07:37 PT Notes Visit Reasons: Weakness Inpatient Physical Therapy Treatment Note [facility] Date: 05/22/2021 PRECAUTIONS: Activity as tolerated SUBJECTIVE: Brenda states that she is not feeling better today. She states I was up all night with restless legs because of what we did yesterday referring to her afternoon PT session. When told we were going to walk with a walker she states no, I can't do that! I need that thing referring to the STEDY lift. OBJECTIVE: Issued FWW. Completed [employer] form and turned in to Care Management. PAIN: Patient c/o B LE pain and back pain BED MOBILITY/TRANSFERS Supine-sit: I Sit-supine: S Sit-stand: SBA Stand-sit: SBA Bed-Chair: CGA GAIT Assistive Device: FWW Weight bearing: Full Assist: CGA Distance: ~10' in a.m.; ~60' in p.m. Deviation: Shaky, cueing for decreased step length and pacing, c/o B LE fatigue; seated rest in p.m. THEREX: Patient was instructed in a global strengthening program, completed in both seated and standing positions, requiring CGA only, as per flow sheet. ASSESSMENT: Patient tolerated session with increased pain . She demonstrates shakiness with gait and requires cueing for decreased pacing and step length for safety. She does not require physical assist and is CGA for safety due to unpredictability. PLAN: Patient to discharge to home later today, per provider. Recommend PT/OT follow up. TREATMENT CODE/TIME: Session 1: 17 minutes; 23368 (07:37) Session 2: 22 minutes; 73685 x2 (10:13)
[2021-05-22 15:20] VITALS: BP 102/73; PULSE 101; RESP 17; TEMP 36.7; O2SAT 99
[2021-05-22 15:56] LABS: Free Retinol (Vitamin A) 11.3 mcg/dL (32.5-78.0)
--- NOTE | 2021-05-22 16:44 | W.PM.PROGNOT ---
Date of Service Date of service: 05/22/21 Time of Service: 16:44 Assessment and Plan Assessment and plan (1) Peripheral neuropathy: Status: Acute (2) Weakness: Status: Acute (3) Ambulatory dysfunction: Status: Acute (4) Paresthesia: Status: Acute Assessment and plan: Ms. Voss is a 35 year-old, right-handed woman who presents with chronic progressive paraesthesias and now weakness, with inability to ambulate. Her neurological exam was notable for functional overlay and complicated by giveway weakness - but with proximal > distal LE weakness. She is grossly hypo/areflexic. Brain and c-spine imaging unremarkable. L-spine imaging also unremarkable. NCS performed today and consistent with a mild-moderate peripheral neuropathy. While there were no obvious demyelinating features, there was asymmetry seen in the lower extremities. This along with her somewhat rapid progression over the last 6 months could indicate an infectious vs inflammatory vs autoimmune etiology. She has known hepatitis C which could be contributing and can cause a rapid neuropathy as well. We will check cyroglobin level along with C3/C4. She needs treatment for this regardless. Will also check MINH, RF, HIV, SPEP. I also recommend LP as further work-up including cell count, protein, glucose, IGG index/synthesis CSF culture. Pending work-up, consider starting IVIG 0.4gm/kg daily x 5 days for presumed autoimmune/inflammatory component. Continue PT/OT. Subjective Subjective Interval history since last seen: Patient with perhaps slight improvement overnight. Working with PT. Recommended inpatient rehab, but she has declined thus far. Reports of ETOH abuse, however she notes only period of heavy drinking occurring Nov-Feb 2021 after from . Notes drinking 4-5 Fernando's hard liquor daily. Exam Narrative Exam Narrative: Physical Exam: Constitutional: Patient of apparent stated age, well nourished, well developed, no acute distress Neuro: MS/Language/Speech: Alert, oriented, clear language (fluency and comprehension), no dysarthria Motor: Normal bulk and tone. FMM intact, no pronator drift. 5/5 strength in bilateral upper extremities. Proximal LE 3/5 bilaterally. Distally 5/5. Noted atrophy/puffiness of feet bilaterally as seen with neuropathy. Reflexes: hyporeflexic/areflexic throughout; downgoing toes Coordination: Finger to nose performed without dysmetria ELECTRODIAGNOSTIC STUDIES: The sural sensory response was absent bilaterally. The right peroneal motor study was normal except for an absent F-wave. The left peroneal motor study had a diminished distal amplitude 1.2 mV. The velocity was slightly decreased at 38 m/s. The F wave was absent. The right tibial motor study was notable for a slightly diminished velocity of 35 m/s. The F wave was prolonged. The left tibial motor study also had a slightly diminished velocity of 35 m/s. The F wave was absent. Objective Last Vital Signs Temp 98.1 F 05/22/21 15:20 Pulse 101 H 05/22/21 15:20 Resp 17 05/22/21 15:20 BP 102/73 05/22/21 15:20 Pulse Ox 99 05/22/21 15:20 Laboratory Results - last 24 hr 05/20/21 05/21/21 05/21/21 06:30 17:00 17:05 Sodium 128 L Potassium Chloride Carbon Dioxide Anion Gap BUN Creatinine Estimated GFR/1.73 m2 Glucose Calcium Magnesium 1.2 L Tiss Transglutamin IgG <1.2 Tiss Transglutamin IgA <1.2 05/22/21 05/22/21 06:45 06:59 Sodium 127 L Potassium 4.2 Chloride 96 L Carbon Dioxide 22.2 Anion Gap 8.8 BUN 1 L Creatinine 0.5 L Estimated GFR/1.73 m2 >= 60.00 Glucose 105 Calcium 7.6 L Magnesium 3.4 H Tiss Transglutamin IgG Tiss Transglutamin IgA PAWSS Have you Been Recently Intoxicated or Drunk Within the Last 30 days?: No Have you Ever Experienced Previous Episodes of Alcohol Withdrawal?: No Have you ever Experienced Withdrawal Seizures?: No Have you ever Experienced Delirium Tremens(DT)s?: No Have you ever undergone Alcohol Rehabilitation Treatment (i.e, inpt ot outpatient treatment programs)?: No Have you ever Experienced Blackouts?: No Have you ever Combined Alcohol with other Downers within the last 90 days?: No Have you ever Combined Alcohol with any other Substance of Abuse during the last 90 days?: No Positive Blood Alcohol level on Presentation? [PCS.BAL]: No Evidence of Increased Autonomic Activity (i.e. HR>120, tremor, sweating, agitation, nausea)?: No Result: 0
[2021-05-22] MEDS: Ibuprofen 600 MG TAB PO (17:32)
[2021-05-22 17:37] LABS: Clarity Clear; Tube # 4
[2021-05-22 17:38] LABS: RBC 0 /mm3 (0-5); WBC 0 /uL (0-5); Xanthochromia Absent
[2021-05-22 17:43] LABS: Glucose (CSF) 81 mg/dL (40-70); Total Protein (CSF) 36 mg/dL (15-45)
--- NOTE | 2021-05-22 18:00 | W.ANESPROC ---
Lumbar Puncture Date Performed: 05/22/21 Procedure Time: 17:00 Requesting Provider: Lilian Pierre Procedure Location: Med/Surg Standard Monitors Applied: None Used Patient Position: Sitting Timeout Performed: Yes Sedation Given (Indicate Dose Given): No Sedation given Patient Mental Status: Awake Sterility: Hand Hygiene, Surgical Cap, Surgical Mask, Sterile Gloves, Sterile Drape/Sheet and Betadine Placement Site: L3-L4 Interspace Spinal Needle Type: Mireille 22 Gauge Needle Length: 3.5 Inch Lumbar Puncture Procedure: Site Prepped, Sterile Drape Placed, 1% Lidocaine to skin and subcutaneous tissue with 25G needle, Spinal Needle Placed, Negative Heme, Positive CSF Flow, CSF Specimen placed into Tubes in Sequential Order and Specimen Labeled, Sent to Lab Ultrasound: Not Used Paresthesia: None Number of Previous Attempts by Other Providers: 0 Number of Attempts (See previous attempts in note section): 1 Procedure Tolerated: No Complications Procedure Outcome: Successful Performed By: Janet Davis
[2021-05-22 18:32] LABS: Lymphocytes CSF 0 % (40-80); Monocyte/Macrophage CSF 0 % (15-45); Neutrophils CSF 0 % (0-6)
[2021-05-22] MEDS: Zolpidem 5 MG TAB PO (20:08)
[2021-05-22 23:32] VITALS: BP 123/81; PULSE 101; RESP 17; TEMP 35.5; O2SAT 99
[2021-05-23] VITALS (14 sets, daily range): BP systolic 105–134; BP diastolic 70–97; PULSE 74–126; RESP 16–18; TEMP 36–37.2; O2SAT 95–100
[2021-05-23] MEDS: Acetaminophen 500 MG TAB 1000 MG PO ×2 (05:19→18:13)
[2021-05-23] MEDS: Metoprolol CR 25 MG TABCR PO (05:19)
[2021-05-23] MEDS: Normal Saline Flush 10 ML SYR IVP ×6 (05:20→20:03)
[2021-05-23] MEDS: Ibuprofen 600 MG TAB PO ×2 (08:16→21:26)
[2021-05-23] MEDS: DULoxetine 20 MG CAP PO (08:16)
[2021-05-23] MEDS: Magnesium Chloride 64 MG TABCR PO ×2 (08:16→19:57)
[2021-05-23] MEDS: Pregabalin 25 MG CAP PO ×3 (08:16→19:57)
[2021-05-23] MEDS: Famotidine 20 MG TAB PO (08:16)
[2021-05-23] MEDS: Potassium Chloride 20 MEQ TABCR PO ×3 (08:16→19:57)
[2021-05-23] MEDS: Calcium 600mg/Vit D 200U TAB 2 TAB PO ×2 (08:16→19:57)
[2021-05-23] MEDS: IMMUNE GLOBULIN 20 GM/200 ML BTL IVPB (08:42)
--- NOTE | 2021-05-23 09:28 | CMPROGNOTE_ITS ---
- If Service Date Differs Date of service: 05/23/21 Time of Service: 09:28 Care Management Progress Note S/O: Brenda was sitting up in bed when CM met with her. A: 35 year old female admitted to [facility] on 05/19/21 for weakness. P: Anticipate Brenda will be discharged home with [facility] RN/PT vs SNF for continued rehab when medically cleared by provider. Transportation dependent on disposition. Follow up with community providers and discharge plan of care as prescribed.
[2021-05-23] MEDS: Ondansetron 4 MG/2 ML VIAL IVP (09:41)
--- NOTE | 2021-05-23 10:16 | PT.INTREAT ---
Date of service: 05/23/21 Time of Service: 07:16 PT Notes Visit Reasons: Weakness Inpatient Physical Therapy Treatment Note [facility] Date: 05/23/2021 PRECAUTIONS: Activity as tolerated SUBJECTIVE: Brenda states that she is not feeling better today. She states that her spine hurts from her lumbar puncture yesterday. She states that she feels very weak today. OBJECTIVE: PAIN: Patient c/o B LE pain and back pain BED MOBILITY/TRANSFERS Supine-sit: I Sit-supine: I Sit-stand: S in a.m.; CGA in p.m. Stand-sit: SBA in a.m.; CGA in p.m. GAIT Assistive Device: FWW Weight bearing: Full Assist: Min A - CGA Distance: 20' + 5' Deviation: Shaky, cueing for decreased step length and pacing, c/o B LE fatigue and pain, seated rest THEREX: Patient was instructed in a global strengthening program, completed in a seated position in a.m. and in both standing and supine position in p.m., as per flow sheet. ASSESSMENT: Patient tolerated session with increased pain and c/o weakness. She demonstrates shakiness with gait and requires Min A at times as well as cueing for decreased pacing and step length for safety. PLAN: Continue with global strengthening and general conditioning for improved safety with mobility TREATMENT CODE/TIME: Session 1: 23 minutes; [id number], [id number] (07:16) Session 2: 20 minutes; [id number] (10:31)
[2021-05-23 10:18] LABS: Lyme Ab w Rflx to Lyme Confirm Negative (Negative)
[2021-05-23] MEDS: Butalbital/Acetaminophen/Caffeine 50/325/40 TAB PO (10:54)
--- NOTE | 2021-05-23 14:37 | CMPROGNOTE_ITS ---
- If Service Date Differs Date of service: 05/23/21 Time of Service: 14:37 Care Management Progress Note S/O: Brenda was sitting up in bed actively vomiting when CM met with her. She c/o nausea, vomiting, diarrhea and bloating. RN is aware, and will offer anti- nausea medication. Pt is being evaluated by neurology and further testing is pending. Pt continues to work with PT for global strengthening and general conditioning to improve mobility. She is agreeable to go to SNF for short term rehab, referrals are pending at [facility]. A: 35 year old female admitted to [facility] on 05/19/21 for weakness. P: Anticipate Brenda will be discharged home with [facility] RN/PT vs SNF for continued rehab when medically cleared by provider. Transportation dependent on disposition. Follow up with community providers and discharge plan of care as prescribed.
--- NOTE | 2021-05-23 14:47 | PGE_ITS ---
Date of Service Date of service: 05/23/21 Time of Service: 14:49 Assessment and Plan Assessment and plan (1) Weakness: Status: Acute Assessment and plan: neurology has been consulted, MRI unrevealing. lumbar puncture ruled out demyelinating process. IVIG discontinued. neuro conduction shows mild-moderate peripheral neuropathy. consider psychogenic ambulatory dysfunction continue PT (2) Diarrhea: Status: Resolved Assessment and plan: stable off levaquin and flaygl stool samples negative now having formed stool (3) Acute dehydration: Status: Resolved Assessment and plan: now euvolemic. (4) DVT prophylaxis: Status: Acute Assessment and plan: enoxaparin daily (5) Discharge planning issues: Status: Acute Assessment and plan: referrals placed for long term facility discussed with Dr Rowe. Subjective Subjective Patient reports: tolerating liquids well and tolerating a regular diet Interval history since last seen: reports significant worsening of her ability to ambulate, in her session with PT demonstrated increased shaking, requiring minimal assistance and cueing. strength equal and 5/5 bilaterally, no notable changes from yesterday. she was reportedly walking on the outside of her feet. Exam Const General: cooperative and ill appearing acutely Nutritional Appearance: thin Orientation: alert, awake and oriented x3 HENMT Mouth: oral mucosa abnormal (dry) erythematous Resp Effort & Inspection: normal respiratory effort, able to speak in complete sentences and no respiratory distress Auscultation: clear to auscultation bilaterally Cardio Rhythm: regular rhythm GI Inspection: other (round, soft) Skin General skin exam: no rashes or lesions noted Neuro General: patient alert, patient awake, patient oriented x3, moves all extremities and no focal motor deficits Objective Last Vital Signs Temp 36.4 C L 05/23/21 12:20 Pulse 112 H 05/23/21 12:20 Resp 18 05/23/21 12:20 BP 131/90 05/23/21 12:20 Pulse Ox 98 05/23/21 12:20 Laboratory Results - last 24 hr 05/20/21 05/21/21 05/22/21 06:30 06:45 06:59 Xanthochromia Ionized Calcium 1.00 L Free Retinol mcg/dL 11.3 L Cortisol CSF Tube Number CSF Color CSF Clarity CSF WBC CSF RBC CSF Neutrophils % CSF Lymphocytes % CSF Monos/Macrophage % CSF Diff Comment CSF Glucose CSF Total Protein Lyme Disease Antibody Negative 05/22/21 05/22/2105/22/22 06:59 17:02 17:02 Xanthochromia Absent Ionized Calcium Free Retinol mcg/dL Cortisol 11 CSF Tube Number 4 CSF Color Colorless CSF Clarity Clear CSF WBC 0 CSF RBC 0 CSF Neutrophils % 0 CSF Lymphocytes % 0 L CSF Monos/Macrophage % 0 L CSF Diff Comment CSF Glucose 81 H CSF Total Protein 36 Lyme Disease Antibody PAWSS Have you Been Recently Intoxicated or Drunk Within the Last 30 days?: No Have you Ever Experienced Previous Episodes of Alcohol Withdrawal?: No Have you ever Experienced Withdrawal Seizures?: No Have you ever Experienced Delirium Tremens(DT)s?: No Have you ever undergone Alcohol Rehabilitation Treatment (i.e, inpt ot outpatient treatment programs)?: No Have you ever Experienced Blackouts?: No Have you ever Combined Alcohol with other Downers within the last 90 days?: No Have you ever Combined Alcohol with any other Substance of Abuse during the last 90 days?: No Positive Blood Alcohol level on Presentation? [PCS.BAL]: No Evidence of Increased Autonomic Activity (i.e. HR>120, tremor, sweating, agitation, nausea)?: No Result: 0
--- NOTE | 2021-05-23 15:02 | PGE_ITS ---
Date of Service Date of service: 05/22/21 Time of Service: 15:02 Assessment and Plan Assessment and plan (1) Weakness: Status: Acute Assessment and plan: neurology has been consulted, MRI unrevealing. plan for LP to rule out CIDP IVIG until ruled out. neuro conduction shows mild-moderate peripheral neuropathy (2) Diarrhea: Status: Resolved Assessment and plan: was placed on levaquin and flaygl stool samples pending now having formed stool will discontinue antibiotics (3) Acute dehydration: Status: Resolved Assessment and plan: now euvolemic. (4) DVT prophylaxis: Status: Acute Assessment and plan: enoxaparin daily (5) Discharge planning issues: Status: Acute Assessment and plan: home with home health vs intermediate facility discussed with Dr Rowe. Subjective Subjective Patient reports: no new complaints, tolerating liquids well, tolerating a regular diet, voiding w/o difficulty and afebrile Exam Const General: cooperative and ill appearing acutely Nutritional Appearance: thin Orientation: alert, awake and oriented x3 HENMT Mouth: oral mucosa abnormal (dry) erythematous Resp Effort & Inspection: normal respiratory effort, able to speak in complete sentences and no respiratory distress Auscultation: clear to auscultation bilaterally Cardio Rhythm: regular rhythm GI Inspection: other (round, soft) Skin General skin exam: no rashes or lesions noted Neuro General: patient alert, patient awake, patient oriented x3, moves all extremities and no focal motor deficits Objective Last Vital Signs Temp 36.4 C L 05/23/21 12:20 Pulse 112 H 05/23/21 12:20 Resp 18 05/23/21 12:20 BP 131/90 05/23/21 12:20 Pulse Ox 98 05/23/21 12:20 Laboratory Results - last 24 hr 05/20/21 05/21/21 05/22/21 06:30 06:45 06:59 Xanthochromia Ionized Calcium 1.00 L Free Retinol mcg/dL 11.3 L Cortisol CSF Tube Number CSF Color CSF Clarity CSF WBC CSF RBC CSF Neutrophils % CSF Lymphocytes % CSF Monos/Macrophage % CSF Diff Comment CSF Glucose CSF Total Protein Lyme Disease Antibody Negative 05/22/21 05/22/21 05/22/21 06:59 17:02 17:02 Xanthochromia Absent Ionized Calcium Free Retinol mcg/dL Cortisol 11 CSF Tube Number 4 CSF Color Colorless CSF Clarity Clear CSF WBC 0 CSF RBC 0 CSF Neutrophils % 0 CSF Lymphocytes % 0 L CSF Monos/Macrophage % 0 L CSF Diff Comment CSF Glucose 81 H CSF Total Protein 36 Lyme Disease Antibody PAWSS Have you Been Recently Intoxicated or Drunk Within the Last 30 days?: No Have you Ever Experienced Previous Episodes of Alcohol Withdrawal?: No Have you ever Experienced Withdrawal Seizures?: No Have you ever Experienced Delirium Tremens(DT)s?: No Have you ever undergone Alcohol Rehabilitation Treatment (i.e, inpt ot outpatient treatment programs)?: No Have you ever Experienced Blackouts?: No Have you ever Combined Alcohol with other Downers within the last 90 days?: No Have you ever Combined Alcohol with any other Substance of Abuse during the last 90 days?: No Positive Blood Alcohol level on Presentation? [PCS.BAL]: No Evidence of Increased Autonomic Activity (i.e. HR>120, tremor, sweating, agitation, nausea)?: No Result: 0
[2021-05-23 15:12] LABS: 1,25-Dihydroxyvitamin D 43 pg/mL (18-78)
[2021-05-23] MEDS: Docusate Sodium 100 MG CAP PO (15:34)
[2021-05-23] MEDS: Polyethylene Glycol 3350 17 GM PACKET PO (15:34)
[2021-05-23] MEDS: Prochlorperazine 10 MG/2 ML VIAL 5 MG IVP (15:42)
--- NOTE | 2021-05-23 16:06 | W.PM.PROGNOT ---
Date of Service Date of service: 05/23/21 Time of Service: 16:06 Assessment and Plan Assessment and plan (1) Peripheral neuropathy: Status: Acute (2) Weakness: Status: Acute (3) Ambulatory dysfunction: Status: Acute (4) Paresthesia: Status: Acute Assessment and plan: Ms. Voss is a 35 year-old, right-handed woman who presents with chronic progressive paraesthesias and now weakness, with inability to ambulate. Her neurological exam was notable for functional overlay and complicated by giveway weakness - but with proximal > distal LE weakness. She is grossly hypo/areflexic. Brain and c-spine imaging unremarkable. L-spine imaging also unremarkable. NCS performed consistent with a mild-moderate peripheral neuropathy. While there were no obvious demyelinating features, there was asymmetry seen in the lower extremities. This along with her somewhat rapid progression over the last 6 months could indicate an infectious vs inflammatory vs autoimmune etiology. LP performed 05/22/21 with normal protein. Given LP timing and duration of symptoms this rules out AIDP/CIDP in my opinion. No indication for IVIG at this time. She has known hepatitis C which could be contributing and can cause a rapid neuropathy as well. Cyroglobin level along with C3/C4 pending. Continue PT/OT. We discussed importance of inpatient rehabilitation. She seems agreeable. I will see her if she is still inpatient on 05/27/21 when I return to office. If discharged, I have not made her a f/up visit in neurology as her plan is to move to [place] before the end of the month. We discussed the need to get a neurologist in [place] as well as need to get her Hep C treated. We also discussed avoiding ETOH. If her plans change and she stays in [place] longer, she should contact my office to schedule a follow-up. Thanks. Subjective Subjective Interval history since last seen: LP done yesterday: WBC 0, RBC 0, Protein 36, glucose 81. Lyme neg. Rest of labs pending. IVIG x1 given this am. Complicated by nausea and headache now resolved. No change in strength. PT noted odd findings today - walking on outside of feet??? but formal exam stable.... Exam Narrative Exam Narrative: Physical Exam: Constitutional: Patient of apparent stated age, well nourished, well developed, no acute distress Neuro: MS/Language/Speech: Alert, oriented, clear language (fluency and comprehension), no dysarthria Motor: Normal bulk and tone. FMM intact, no pronator drift. 5/5 strength in bilateral upper extremities. Proximal LE 4+/5 bilaterally. Distally 5/5. Noted subtle atrophy/puffiness of feet bilaterally -less obvious today. Coordination: Finger to nose performed without dysmetria Objective Last Vital Signs Temp 97.7 F 05/23/21 15:58 Pulse 105 H 05/23/21 15:58 Resp 18 05/23/21 15:58 BP 108/85 05/23/21 15:58 Pulse Ox 98 05/23/21 15:58 Laboratory Results - last 24 hr 05/20/21 05/21/21 05/22/21 06:30 06:45 06:59 Xanthochromia Ionized Calcium 1.00 L Free Retinol mcg/dL 11.3 L Cortisol CSF Tube Number CSF Color CSF Clarity CSF WBC CSF RBC CSF Neutrophils % CSF Lymphocytes % CSF Monos/Macrophage % CSF Diff Comment CSF Glucose CSF Total Protein Lyme Disease Antibody Negative 05/22/21 05/22/21 05/22/21 06:59 17:02 17:02 Xanthochromia Absent Ionized Calcium Free Retinol mcg/dL Cortisol 11 CSF Tube Number 4 CSF Color Colorless CSF Clarity Clear CSF WBC 0 CSF RBC 0 CSF Neutrophils % 0 CSF Lymphocytes % 0 L CSF Monos/Macrophage % 0 L CSF Diff Comment CSF Glucose 81 H CSF Total Protein 36 Lyme Disease Antibody PAWSS Have you Been Recently Intoxicated or Drunk Within the Last 30 days?: No Have you Ever Experienced Previous Episodes of Alcohol Withdrawal?: No Have you ever Experienced Withdrawal Seizures?: No Have you ever Experienced Delirium Tremens(DT)s?: No Have you ever undergone Alcohol Rehabilitation Treatment (i.e, inpt ot outpatient treatment programs)?: No Have you ever Experienced Blackouts?: No Have you ever Combined Alcohol with other Downers within the last 90 days?: No Have you ever Combined Alcohol with any other Substance of Abuse during the last 90 days?: No Positive Blood Alcohol level on Presentation? [PCS.BAL]: No Evidence of Increased Autonomic Activity (i.e. HR>120, tremor, sweating, agitation, nausea)?: No Result: 0
[2021-05-23 16:52] LABS: Calprotectin 515 mcg/g
[2021-05-23 17:50] LABS: Rheumatoid Factor 19.8 IU/mL (<12.0)
[2021-05-23] MEDS: Zolpidem 5 MG TAB PO (21:28)
[2021-05-23 22:34] LABS: Anaplasma phagocytophilum Negative (Negative); B. miyamotoi PCR Negative (Negative); Babesia divergens/MO-1 Negative (Negative); Babesia duncani Negative (Negative); Babesia microti Negative (Negative); Ehrlichia chaffeensis Negative (Negative); Ehrlichia ewingii/canis Negative (Negative); Ehrlichia muris eauclairensis Negative (Negative)
[2021-05-24] MEDS: Ibuprofen 600 MG TAB PO (05:07)
[2021-05-24] MEDS: Acetaminophen 500 MG TAB 1000 MG PO ×2 (05:07→13:02)
[2021-05-24 05:08] VITALS: BP 123/93; PULSE 108
[2021-05-24] MEDS: Metoprolol CR 25 MG TABCR PO (05:08)
[2021-05-24 07:01] LABS: Platelet Count 212 10^3/uL (130-400)
[2021-05-24 08:27] VITALS: BP 104/77; PULSE 136; RESP 17; TEMP 36.5; O2SAT 100
[2021-05-24] MEDS: Calcium 600mg/Vit D 200U TAB 2 TAB PO (08:49)
[2021-05-24] MEDS: Docusate Sodium 100 MG CAP PO (08:50)
[2021-05-24] MEDS: Prochlorperazine 10 MG/2 ML VIAL 5 MG IVP (08:50)
[2021-05-24] MEDS: Enoxaparin 40 MG/0.4 ML SYR SC (08:50)
[2021-05-24] MEDS: DULoxetine 20 MG CAP PO (08:50)
[2021-05-24] MEDS: Polyethylene Glycol 3350 17 GM PACKET PO (08:50)
[2021-05-24] MEDS: Pregabalin 25 MG CAP PO ×2 (08:50→13:02)
[2021-05-24] MEDS: Famotidine 20 MG TAB PO (08:50)
[2021-05-24] MEDS: Potassium Chloride 20 MEQ TABCR PO (08:50)
[2021-05-24] MEDS: Magnesium Chloride 64 MG TABCR PO (08:50)
[2021-05-24] MEDS: Normal Saline Flush 10 ML SYR IVP ×2 (08:51→12:09)
[2021-05-24] MEDS: Butalbital/Acetaminophen/Caffeine 50/325/40 TAB PO (09:54)
--- NOTE | 2021-05-24 10:15 | RT.EKG_ITS ---
APPROVED REPORT Exam: Resting ECG Reason for Exam: chest pain Patient Location: I HR:114 bpm ECG Measurements Heart Rate 114 AXIS WI 139 P 72 QRSd 87 QRS 66 QT 364 T 242 QTc 502 Conclusion Sinus tachycardia...rate> [address]-T abnormalities Prolonged QT interval...QTc >495mS
--- NOTE | 2021-05-24 10:27 | CMPROGNOTE_ITS ---
- If Service Date Differs Date of service: 05/24/21 Time of Service: 10:27 Care Management Progress Note S/O: SNF referrals are still pending at [facility] reluctant to offer Brenda a bed d/t unknown etiology of her ambulatory disorder. They will review the referral again on Thursday. is sending out additional SNF referrals to: [facility], [facility]. CM will also send referrals to [facility] in [place] and [facility] in [place]. Brenda is unvaccinated, which may be a barrier to placement. Brenda shares that her brother quit his job earlier this week so he could be her caregiver (if she were to be able to discharge home.) She does note to have 3 steps to get into her home, and 18 steps to get to the bathroom and her bedroom. CM will discuss with PT. Brenda has HX of depression and substance abuse, perhaps a referral to Dr. Jones would be beneficial. CM will discuss with provider. A: 35 year old female admitted to [facility] on 05/19/21 for weakness. P: Anticipate Brenda will be discharged home with [facility] RN/PT vs SNF for continued rehab when medically cleared by provider. Transportation dependent on disposition. Follow up with community providers and discharge plan of care as prescribed.
[2021-05-24 10:44] LABS: HIV-1/2 Ag & Ab Screen Negative (Negative)
[2021-05-24 11:04] LABS: C3 Complement 60 mg/dL (81-157); C4 Complement 14 mg/dL (13-39)
[2021-05-24 11:28] LABS: Anion Gap 3.5 mmol/L (3-11); BUN 3 mg/dL (7-18); CO2 28.5 mmol/L (21.0-32.0); CREATININE 0.5 mg/dL (0.55-1.02); Calcium 8.6 mg/dL (8.5-10.1); Chloride 98 mmol/L (98-107); Glucose 110 mg/dL (74-106); Magnesium 1.6 mg/dL (1.8-2.4); Potassium 4.9 mmol/L (3.5-5.1); Sodium 130 mmol/L (136-145)
[2021-05-24 11:34] LABS: Creatine Kinase 30 U/L (26-192)
[2021-05-24 11:37] LABS: Troponin I < 50 ng/L (<or=60)
[2021-05-24 11:48] LABS: Source Nasal/Nares
[2021-05-24] MEDS: MAGNESIUM SULFATE 1 GM/100 ML BAG IVPB (12:09)
[2021-05-24 12:27] LABS: COVID-19 PCR Negative (Negative)
[2021-05-24 13:48] LABS: Albumin, CSF 16.5 mg/dL (<=25.1); Albumin, S 2.6 g/dL (3.4-4.9); IgG Index, CSF 0.66 Index (<=0.84); IgG, CSF 2.83 mg/dL (<=5.00); IgG, S 679 mg/dL (610-1,616); IgG/Albumin, CSF 0.17 Ratio (<=0.24); Synthesis Rate, CSF 2.03 mg/24hrs (<=8.00)
--- NOTE | 2021-05-24 14:00 | RT.EKG_ITS ---
APPROVED REPORT Exam: Resting ECG Reason for Exam: EKG changes Patient Location: I HR:104 bpm ECG Measurements Heart Rate 104 AXIS MA 143 P 55 QRSd 107 QRS 22 QT 375 T 238 QTc 494 Conclusion Sinus tachycardia...rate> [address]-T abnormalities V2-V6 Artifact in lead(s) I,II,aVR,aVL,aVF,V1,V2,V3,V4,V5,V6
[2021-05-24 14:24] LABS: ANA Interpretation Positive (Negative)
[2021-05-24 14:53] LABS: Troponin I < 50 ng/L (<or=60)
--- NOTE | 2021-05-24 14:58 | DSE_ITS ---
Date of service: 05/24/21 Time of Service: 15:02 DS: Diagnosis Discharge Diagnosis (1) Weakness: Status: Acute (2) Diarrhea: Status: Resolved (3) Acute dehydration: Status: Resolved Discharge Plan Disposition Patient Disposition: HOME W/HOME HEALTH SERVICE Condition: Stable Discharge Details Reason For Visit: Weakness Admit Date/Time: 05/19/21 19:19 Admit Provider: Jorge Owens Attending Provider: Jorge Owens Primary Care Provider: Nicolas Hartmann Hospital Course Hospital Course: This is a 35 female with history of chronic unspecified neuropathy, cholelithiasis, unspecified tachycardia and recurrent diarrhea, usual care at [facility], says she is here because she hasn't gotten answers. Stated she has had ascending sensory changes in stocking/glove fashion since last summer, has not seen neuro; states she has had intermittent bouts of abdominal pain, nausea and vomiting and diarrhea, and was told she should have her gall bladder removed (unclear why this has not happened) and comes in reporting 2 weeks of unremitting watery diarrhea and progressive weakness to the point where she was unable to ambulate. Work up in ER of note for white count 8.5; Na 130, K 4.0, Mg 1.1; BUN 7/Creat 0.5; Albumin 2.9, TSH 1.0; CT abdomen few tiny gall stones, no signs cholycystitis, mild ileitis and proximal colitis. Patient has received IVF, Zofran, Dilaudid and MgSO4. She was admitted to med/surg unit. Her electrolytes were replaced. She was placed on levaquin and flagyl to treat her enteritis which was stopped and has resolved. She was seen by physical therapy and found to be re-ambulating safely with walker. She underwent MRI with no findings to explain her symptoms. Neurology following and nerve conduction testing showed evidence of peripheral neuropathy. she continued to have reports of generalized muscle weakness. A CPK was repeated and normal, she also started c/o chest discomfort which was reproducible. an EKG showed non specific t wave changes, troponin x2 negative. repeat EKG unchanged, patient is chest pain free. discussed discharge to residential facility but patient preferred to be discharged to home with home health services. She will be discharged to home with RCT and lift assist with home PT/OT and [facility]. discharge discussed with DR Mcfadden Home Meds and New Rx's Prescriptions: Continued metoprolol succinate 25 mg tablet extended release 24 hr 25 mg PO DAILY AM RF: 0 ondansetron 4 mg tablet,disintegrating 4 mg PO PRN PRNRF: 0 potassium chloride 20 mEq tablet extended release 20 meq PO BID RF: 0 omeprazole 40 mg capsule,delayed release(DR/EC) 40 mg PO DAILY AM RF: 0 albuterol sulfate [ProAir HFA] 90 mcg/actuation HFA aerosol inhaler 2 puff INHALATION PRN PRNRF: 0 prochlorperazine 25 mg suppository DC RF: 0 Discharge Instructions Instructions: Weakness (DC) Additional Instructions: take all medication as prescribed do not drink alcohol Referrals: Nicolas Hartmann [Primary Care Provider] - Activity:: Activity as Tolerated Equipment/Supplies:: Walker Diet:: As Tolerated Discharge Orders Discharge Orders: Discharge Order (Routine); Ordered 05/24/21 Ordered By: Lilian Pierre DS: Summary Time Spent with Patient providing and/or coordinating discharge services: Greater than 30 minutes Status at Discharge Functional status at discharge: uses cane/walker Overall status at discharge: patient is not back to baseline Mental Status: mental status grossly normal Speech and Movement: speech and movement normal Mood: congruent mood Affect: blunted Exam Const General: cooperative Nutritional Appearance: thin Orientation: alert, awake and oriented x3 HENMT Mouth: oral mucosa abnormal (dry) erythematous Resp Effort & Inspection: normal respiratory effort and no respiratory distress Auscultation: clear to auscultation bilaterally Cardio Rate: tachycardic Rhythm: regular rhythm GI Inspection: distended Auscultation: hypoactive bowel sounds Back/Spine/Pelvis Thoracic/Lumbar Spine: No paraspinal tenderness, No thoracic spinal tenderness and lumbar spinal tenderness Skin General skin exam: no rashes or lesions noted Neuro General: patient alert, patient awake, patient oriented x3, moves all extremities and no focal motor deficits Sensory Exam: no sensory deficits noted Psych Mental Status: mental status grossly normal Speech and Movement: speech and movement normal Mood: congruent mood Affect: blunted DS: Data Vitals/I&O Vitals and I&O: Vital Signs Temperature 36.5 C 05/24/21 08:27 Temperature Source Tympanic 05/24/21 08:27 Pulse 136 H 05/24/21 08:27 Pulse Rhythm Regular 05/24/21 09:00 Pulse 122 H 05/19/21 19:50 Respiratory Rate 17 05/24/21 08:27 Respiratory Effort Non-Labored 05/24/21 09:00 Respiratory Depth Normal 05/24/21 09:00 Respiratory Pattern Normal 05/24/21 09:00 Blood Pressure 104/77 05/24/21 08:27 Blood Pressure Mean 100 05/19/21 19:46 Blood Pressure Position Supine 05/19/21 15:01 Pulse Oximetry 100 05/24/21 08:27 Oxygen Delivery Method Room Air 05/24/21 08:27 Oxygen Flow Rate 0 05/24/21 08:27 Pain Level 9 05/24/21 13:02 Comment 05/24/21 08:27 Intake & Output 05/23/21 05/24/21 05/24/21 23:59 11:59 23:59 Intake Total 300 / 740 Output Total 1200 / 2700 2250 / 2250 Balance -900 / -1960 -2230 / -2230 Intake: IV Oral 300 / 700 Output: Urine 1200 / 2700 2250 / 2250 Other: Urine Color Yellow Yellow Urine Appearance Clear Clear Urine Odor Normal None Comment mixed with stool There was stool mixed in the urine. Stool Size Moderate Moderate Stool Characteristics Soft Liquid Brown Brown Green Voiding Methods Bedside Commode Bedside Commode Data Completed and Pending Labs on day of discharge: Labs from last 24 hours 05/24/21 05/24/21 05/24/21 14:15 12:43 11:34 Plt Count Sodium Potassium Chloride Carbon Dioxide Anion Gap BUN Creatinine Estimated GFR/1.73 m2 Glucose Calcium Magnesium Creatine Kinase Troponin I < 50 Cancelled Vit D 1,25-Dihydroxy Stool Calprotectin Rheumatoid Factor Complement C3 Complement C4 A.phagocytophil DNA PCR B. divergens/MO-1 PCR Babesia duncani (PCR) Babesia microti DNA PCR Borrelia (PCR) COVID-19 Source Nasal/Nares SARS-CoV-2 (PCR) Negative E.chaffeensis DNA (PCR) E.ewingii/canis DNA PCR E. muris-like DNA (PCR) HIV 1&2 Ag/Ab, 4th Gen 05/24/21 05/24/21 05/24/21 11:08 11:08 11:08 Plt Count Sodium 130 L Potassium 4.9 Chloride 98 Carbon Dioxide 28.5 Anion Gap 3.5 BUN 3 L Creatinine 0.5 L Estimated GFR/1.73 m2 >= 60.00 Glucose 110 H Calcium 8.6 Magnesium 1.6 L Creatine Kinase 30 Troponin I < 50 Vit D 1,25-Dihydroxy Stool Calprotectin Rheumatoid Factor Complement C3 Complement C4 A.phagocytophil DNA PCR B. divergens/MO-1 PCR Babesia duncani (PCR) Babesia microti DNA PCR Borrelia (PCR) COVID-19 Source SARS-CoV-2 (PCR) E.chaffeensis DNA (PCR) E.ewingii/canis DNA PCR E. muris-like DNA (PCR) HIV 1&2 Ag/Ab, 4th Gen 05/24/21 05/23/21 05/23/21 06:30 06:20 06:20 Plt Count 212 Sodium Potassium Chloride Carbon Dioxide Anion Gap BUN Creatinine Estimated GFR/1.73 m2 Glucose Calcium Magnesium Creatine Kinase Troponin I Vit D 1,25-Dihydroxy Stool Calprotectin Rheumatoid Factor 19.8 H Complement C3 60 L Complement C4 14 A.phagocytophil DNA PCR B. divergens/MO-1 PCR Babesia duncani (PCR) Babesia microti DNA PCR Borrelia (PCR) COVID-19 Source SARS-CoV-2 (PCR) E.chaffeensis DNA (PCR) E.ewingii/canis DNA PCR E. muris-like DNA (PCR) HIV 1&2 Ag/Ab, 4th Gen Negative 05/21/21 05/20/21 05/20/21 06:45 09:30 06:30 Plt Count Sodium Potassium Chloride Carbon Dioxide Anion Gap BUN Creatinine Estimated GFR/1.73 m2 Glucose Calcium Magnesium Creatine Kinase Troponin I Vit D 1,25-Dihydroxy 43 Stool Calprotectin 515 H Rheumatoid Factor Complement C3 Complement C4 A.phagocytophil DNA PCR Negative B. divergens/MO-1 PCR Negative Babesia duncani (PCR) Negative Babesia microti DNA PCR Negative Borrelia (PCR) Negative COVID-19 Source SARS-CoV-2 (PCR) E.chaffeensis DNA (PCR) Negative E.ewingii/canis DNA PCR Negative E. muris-like DNA (PCR) Negative HIV 1&2 Ag/Ab, 4th Gen Preliminary micro results at discharge 05/22/21 17:02 Body Fluid Culture - Preliminary Cerebrospinal Fluid PFSH All Active Problems (Updated 05/23/21 @ 16:45 by Lilian Pierre NP) Peripheral neuropathy (Acute) Enteritis (Acute) Hepatitis C test positive (Acute) Paresthesia (Acute) Discharge planning issues (Acute) DVT prophylaxis (Acute) Dental abscess (Acute) Facial swelling (Acute) Fibromyalgia (Acute) Back pain (Acute) Ambulatory dysfunction (Acute) Nausea & vomiting (Acute) Gallstones without obstruction of gallbladder (Acute) Hypomagnesemia (Acute) Weakness (Acute) Weakness (Acute) Social History (Updated 05/21/21 @ 16:41 by Myrna Pierre MD) Smoking/Tobacco Use Status: Current every day Tobacco Type: cigarettes Smoking risk assessment performed?: Yes Alcohol Intake: current Alcohol Intake frequency: 3 or more drinks per day Drug use: Current Sobriety Substance use type: former substance user Number of Children: 4 current occupation: Unemployed Do you feel safe at home: Yes Additional Social history: Kids age 12 and 10 live with her ex-. Has twins age 9. Was unable to care for them. Her aunt adopted them at . 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
[2021-05-24 15:16] LABS: Albumin 55.4 % (55.8-66.1)
--- NOTE | 2021-05-24 15:17 | PDOC.CMDIS ---
- If Service Date Differs Date of service: 05/24/21 Time of Service: 15:17 LACE Index Scoring Tool - Questions: Length of Stay (in days): 4 - 6 Acuity (Admit via E.D.?): Yes E.D. Visits: 1 - Answers: Total Score: 8 Risk of Readmission: Low Risk Care Management Discharge Reason for Hospitalization: Weakness, abdominal pain, dehydration, diarrhea Discharge Plan: Brenda declines SNF for short term rehab at this time. She will discharge home with new VNA services (PT/OT/ONLINE MARKETING MANAGER) via [employer] W/C van. Lift assist through all local EMS services is unavailable due to staffing and weather. Brenda's brother has agreed to help her in the house. Brenda agrees to follow up with community providers. Patient/Family Education Needs: Review discharge instructions, limitations, medications and plan to follow up with community providers. ask me three. Services Needed at Discharge: Home Health Care Services (New VNA services (PT/OT/ONLINE MARKETING MANAGER), CM notified), Transportation ([facility] W/C van, arranged by CM)
[2021-05-24 15:20] VITALS: BP 126/91; PULSE 112; RESP 17; TEMP 36.1; O2SAT 100
--- NOTE | 2021-05-24 15:31 | PT.INTREAT ---
Date of service: 05/24/21 Time of Service: 14:00 PT Notes Visit Reasons: Weakness Inpatient Physical Therapy Treatment Note [facility] Date: 05/24/2021 PRECAUTIONS: Activity as tolerated SUBJECTIVE: Brenda reports that she is feeling worse today. No, I'm not doing it, I'm too tired and my legs and my back hurt. Patient states I just want to go home when told that going to a SNF-level rehab would entail working with physical therapy and occupational therapy. She also states I'm dizzy, I've been dizzy for two days. OBJECTIVE: PAIN: Patient c/o B LE pain and back pain at rest BED MOBILITY/TRANSFERS Supine-sit: I Sit-supine: I Sit-stand: CGA x2 Stand-sit: CGA x2 GAIT Assistive Device: FWW Weight bearing: Full Assist: Min A x2 - Mod A x2 Distance: 10' x2 Deviation: Shaky, cueing for decreased step length and pacing, c/o B LE fatigue and pain, seated rest, increasingly ataxic gait ASSESSMENT: Patient tolerated session with increased pain and c/o weakness. She demonstrates increasingly atypical ataxic gait and required Min A x2 - Mod A x2 today. Patient has demonstrated changing and increasingly atypical and ataxic gait patterns over the course of several days, requiring increasing levels of assist, although complaints of LE weakness and gait abnormalities are inconsistent with strength with ther ex, muscle testing, and transfers. MRI and lumbar puncture results were negative, and NCS findings show mild-moderate peripheral neuropathy. PLAN: Patient to discharge to home later today, per provider. Patient will have / care at home and recommend follow up with PT/OT. TREATMENT CODE/TIME: 10 minutes; 57704 (14:00)
--- NOTE | 2021-05-24 19:00 | INDS_ITS ---
Date of service: 05/24/21 PT Notes Visit Reasons: Weakness Physical Therapy Inpatient Discharge Summary Date: 05/24/2021 Dates of service: 05/20/2021 through 05/24/2021 This is a clinical summary of care provided for the duration of dates listed above. No charge was made in the completion of this documentation. Referring Doctor:? Vivi Guzmán NP PT Orders: PT CONSULT: Eval/Treat Precautions: Fall. Standard. Activity as tolerated. Patient Profile/Admitting Diagnosis: Brenda is a 35-year-old female who presented to the ED on 05/19/2021 due to abdominal pain, nausea, and vomiting along with increasing numbness and tingling as well as loss of ability to walk.? Patient is diagnosed with paresthesias, hypomagnesemia, dehydration, generalized weakness, ambulatory dysfunction, and neuropathy. Referral to neurology and general surgery made to address active medical problems. PMHX: All Active Problems?(Updated 05/20/21 @ 17:06 by Myrna Pierre MD) Paresthesia (Acute) Hypokalemia (Acute) Discharge planning issues (Acute) DVT prophylaxis (Acute) Dental abscess (Acute) Facial swelling (Acute) Fibromyalgia (Acute) Back pain (Acute) Ambulatory dysfunction (Acute) Nausea & vomiting (Acute) Gallstones without obstruction of gallbladder (Acute) Hypomagnesemia (Acute) Weakness (Acute) Diarrhea (Acute) Acute dehydration (Acute) Weakness (Acute) Social History/Home Situation:? Lived in [place] with significant other and two kids however she had a fall out with her significant other recently. Currently, her significant other and her two kids are in [place].? Here in [place],? she lives with her brother in a private home with bathroom downstairs.? Patient states that her brother is able to help her with whatever she needs but works 10 hour days.? She has a friend who helps her out with showers.? She has used a cane to aid with her walking since but these past two weeks, walking has been an impossibility.? Has had increasing difficulty with walking since two weeks ago.? Receives assistance from friend who works for with bathing. Equipment Owned/DME: Single-point cane Subjective: NT. See most recent PRODUCTION CONTROL TECHNOLOGIST notes. Objective: General Observation: NT. See most recent PRODUCTION CONTROL TECHNOLOGIST notes. Mental Status: NT. See most recent PRODUCTION CONTROL TECHNOLOGIST notes. Pain: NT. See most recent PRODUCTION CONTROL TECHNOLOGIST notes. ROM: Right Upper Extremity: ? Shoulder Flexion WFL. Shoulder abduction WFL. Elbow flexion WFL. Wrist flexion WFL. Functional opening and closing of hand WFL. Left Upper Extremity:? Shoulder Flexion WFL. Shoulder abduction WFL. Elbow flexion WFL. Wrist flexion WFL. Functional opening and closing of hand WFL. Right Lower Extremity: Hip flexion allows about 10 degrees with report of stiffness and fatigue at end of range. Hip abduction about 20 degrees on gravity eliminated plane. Knee flexion about 20 degrees with report of stiffness and fatigue at end of range. Ankle dorsiflexion WFL. Ankle plantarflexion WFL. Left Lower Extremity: Hip flexion allows about 10 degrees with report of stiffness and fatigue at end of range. Hip abduction about 20 degrees on gravity eliminated plane. Knee flexion about 20 degrees with report of stiffness and fatigue at end of range. Ankle dorsiflexion WFL. Ankle plantarflexion WFL. Strength: Right Upper Extremity: Shoulder flexors 4-/5. Shoulder abductors 4-/5. Elbow flexors 4-/5. Elbow extensors 4-/5. Electric Mule Driver weak. Left Upper Extremity: Shoulder flexors 4-/5. Shoulder abductors 4-/5. Elbow flexors 4-/5. Elbow extensors 4-/5. Electric Mule Driver weak. Right Lower Extremity: Hip flexors 2-/5. Hip abductors 2-/5. Knee flexors 2-/5. Knee extensors 2-/5. Ankle dorsiflexors 3+/5. Ankle plantarflexors 3+/5. Left Lower Extremity: Hip flexors 2-/5. Hip abductors 2-/5. Knee flexors 2-/5. Knee extensors 2-/5. Ankle dorsiflexors 3+/5. Ankle plantarflexors 3+/5. Sensation:? Tingling in B feet and B fingernails.? Numbness from the leg down to B thighs.? Bed Mobility/Transfers: Rolling independent Supine to sit independent Sit to supine independent Sit to stand contact-guard assist of 2 Stand to sit contact-guard assist of 2 Bed to chair minimal assist of 2 Chair to bed minimal assist of 2 Gait: Able to tolerate up to 10 feet x 2 of level surface ambulation using FWW with full weight bearing demonstrating atypical ataxia with variable gait pattern each time she is asked to walk requiring minimal to moderate assist of 2 with wheelchair follow due to increased fall risk. Balance: Patient not reliable enough and safe enough to be tested at this time Assessment:? MRI and lumbar tap testing returned with no acute abnormalities. Patient requires HH PT to progress mobility level in the home setting to allow for generalizability of mobility tasks using the FWW. Patient will have the assistance of her brother who recently quit his job to help take care of patient as needed. Barriers to achieving mobility goals include lack of motivation to participate in therapy, non-receptiveness to PT intervention needing extensive encouragement to participate, and unwillingness to go to a SNF for further rehabilitation to address her functional impairments. She was provided with FWW for home to reduce fall risk. Patient presents with clinical signs and symptoms consistent with current/admitting diagnoses that have resulted to mobility limitations, gait instability, generalized weakness, and overall ADL decline as demonstrated by the following impairment level findings: 1.? Decreased strength to B UE/LE major muscle groups 2.? Impaired standing balance 3.? Impaired activity tolerance 4.? Limitation of joint range of motion in B LE joints 5.? Anxiety over worsening medical condition and relationship break out with s ignificant other Impairments are contributing to the following functional limitations: 1.? Decline in bed mobility skills 2.? Decline in transfer skills 3.? Inability to ambulate 4.? Increased risk for skin breakdown 5.? Increased risk for falls Goals: Goals X1 week 1. Supine-Sit minimal assist MET 2. Sit-Supine minimal assist MET 3. Sit-Stand minimal assist MET 4. Stand-Sit minimal assist with FWW MET 5. Bed-Chair minimal assist with FWW MET 6. Chair-Bed minimal assist with FWW MET 7. Minimal assist with FWW for gait on level surface for at least 50 feet without report of pain nor dyspnea NOT MET 8. Fair static and dynamic standing balance/tolerance NOT MET DISCHARGE RECOMMENDATIONS: [] ? Home with no services [] [] ? Home with services [specify] [] ? Home with outpatient PT [] [X] ? SNF for continued rehabilitation.? Patient will benefit from [facility] facility placement for continued skilled physical therapy services in order to progress mobility level, strength, and balance in preparation for a safe discharge to home in [place]. [] ? Penitentiary Care [] [] ? SNF versus LTC based on ability to participate and progress [] TREATMENT CODE/TIME: NC Thank you for the opportunity to participate in the care of this patient. Lina Elliott PT, DPT, CLT [facility] [place], [place]
[2021-05-28 12:06] LABS: Cryoglobulin, S Negative %ppt (Negative)
== END 2021-05-24 15:53 | disposition home health service (06) | DRG 74 ==
LOC: ER 17:07 → MS 20:03
PROVIDERS: Family Medicine; Internal Medicine; Nurse Practitioner Acute Care; Nurse Practitioner Family; Psychiatry & Neurology Neurology; Admitting Provider General Practice; Emergency Provider Physician Assistant; PCP Family Medicine; Visit Provider General Practice
DX: G62.9 Polyneuropathy, unspecified (principal); E87.1 Hypo-osmolality and hyponatremia; R53.1 Weakness; E86.0 Dehydration; E87.6 Hypokalemia; K80.20 Calculus of gallbladder without cholecystitis without obstruction; R00.0 Tachycardia, unspecified; R19.7 Diarrhea, unspecified; F17.210 Nicotine dependence, cigarettes, uncomplicated; F32.A Depression, unspecified; E83.51 Hypocalcemia; M79.7 Fibromyalgia; R26.2 Difficulty in walking, not elsewhere classified; K04.7 Periapical abscess without sinus; B19.20 Unspecified viral hepatitis C without hepatic coma; F39 Unspecified mood [affective] disorder; K58.9 Irritable bowel syndrome, unspecified; K21.9 Gastro-esophageal reflux disease without esophagitis; R13.10 Dysphagia, unspecified; R20.2 Paresthesia of skin; E83.42 Hypomagnesemia; R29.2 Abnormal reflex
CPT/HCPCS: 62270; 36410; 36415; 51702; 71275; 74177; 80048; 80053; 80076; 82533; 82550; 82945; 83690; 85027; 85652; 87329; 87389; 87505; 87635; 87798; 89050; 89051; 93005; 96361; 96365; 96366; 96375; 97110; 97163; 97530; 99285; J1650; 70551; 72141; 72148; 81003; 82040; 82042; 82330; 82595; 82607; 82652; 82784; 83516; 83630; 83735; 83993; 84100; 84132; 84157; 84165; 84295; 84443; 84484; 84590; 85025; 85049; 85610; 86038; 86140; 86160; 86431; 86618; 87070; 87205; 93010; 99222; 99233; 99239; J0131; J0610; J0780; J1459; J1956; J2405; J3475; J3480; J3490